=== PATIENT | female | born 1940 | race Caucasian/White ===

== ENCOUNTER 2019-07-23 13:58 | Inpatient (IN) | payer OTHER, MEDICAID ==
[~2019-07-23] VITALS: Ht 154.9 cm; Wt 54.4 kg
[2019-07-23 14:00] VITALS: BP_SYST 89
[2019-07-23] MEDS ORDERED: NACL 0.9% 1,000 ML IV ONE (14:30)
[2019-07-23] MEDS ORDERED: NOREPINEPHRINE BITARTRATE 4 MG in NS 246 ML IV ONE (14:30)
[2019-07-23 14:53] LABS: BASOPHILS # (AUTO) 0.1 K/uL (0.0-0.2); BASOPHILS % (AUTO) 0.3 % (0.0-2.0); EOSINOPHILS # (AUTO) 0.2 K/uL (0.0-0.4); EOSINOPHILS % (AUTO) 0.9 % (0.0-4.0); HEMATOCRIT 35.6 % (36-48); HEMOGLOBIN 11.6 g/dL (12.0-16.0); LYMPHOCYTES # (AUTO) 1.6 K/uL (1.0-5.5); LYMPHOCYTES % (AUTO) 9.4 % (20.5-51.5); MEAN CORPUSCULAR HEMOGLOBIN 32 pg (27-31); MEAN CORPUSCULAR HGB CONC 33 % (32-36); MEAN CORPUSCULAR VOLUME 98 fL (79.0-98.0); MONOCYTES # (AUTO) 1.2 K/uL (0.0-1.0); MONOCYTES % (AUTO) 7.1 % (1.7-9.3); NEUTROPHILS # (AUTO) 14.2 K/uL (1.8-7.7); NEUTROPHILS % (AUTO) 82.3 % (40.0-70.0); PLATELET COUNT (AUTO) 282 K/uL (130-430); RED BLOOD CELL COUNT(AUTO) 3.62 MIL/uL (4.2-6.2); WHITE BLOOD COUNT (AUTO) 17.3 K/uL (4.8-10.8)
[2019-07-23 15:26] LABS: INR 1.1 (0.8-1.2); PROTHROMBIN TIME 10.9 SECS (9.5-12.5)
[2019-07-23] MEDS ORDERED: VANCOMYCIN HCL 1,000 MG in NS 250 ML IV ONE (15:30)
[2019-07-23] MEDS ORDERED: cefTRIAXone 1 GM IVPB PREMIX 50 ML IV ONE (15:30)
[2019-07-23] MEDS ORDERED: NOREPINEPHRINE 4 MG/4 ML VIAL IV ONE ×2 (15:30→21:51)
[2019-07-23 15:33] LABS: ANION GAP 13 (5-15); CALCIUM 8.9 mg/dL (8.4-11.0); CREATININE 5.26 mg/dL (0.55-1.30); GLUCOSE 125 mg/dL (70-99); POTASSIUM 5.3 mmol/L (3.5-5.1); SODIUM SERUM 154 mmol/L (136-145)
[2019-07-23 15:37] LABS: ALANINE AMINOTRANSFERASE 117 U/L (12-78); ALBUMIN 2.6 g/dL (3.4-4.8); ASPARTATE AMINOTRANSFERASE 94 U/L (10-37); FREE T4 (FREE THYROXINE) 1.4 ng/dl (0.8-1.5); THYROID STIMULATING HORMONE 3.33 uIu/mL (0.36-3.74); TOTAL BILIRUBIN 0.5 mg/dL (0.0-1.0)
[2019-07-23] MEDS ORDERED: VANCOMYCIN HCL 1000 MG/VIAL IV ONE (15:42)
[2019-07-23 15:58] LABS: CHLORIDE 121 mmol/L (98-107)
[2019-07-23 15:59] LABS: UREA NITROGEN, BLOOD 165 mg/dL (8-21)
[2019-07-23 16:16] LABS: BILIRUBIN,URINE NEGATIVE (NEGATIVE); BLOOD, URINE 2+ (NEGATIVE); COLOR,URINE YELLOW (YELLOW); GLUCOSE,URINE NEGATIVE (NEGATIVE); KETONES,URINE NEGATIVE (NEGATIVE); LEUKOCYTE ESTERASE ,URINE NEGATIVE (NEGATIVE); NITRITE, URINE NEGATIVE (NEGATIVE); PH,URINE 5.5 (5.0-8.0); PROTEIN URINE TRACE (NEGATIVE); UROBILINOGEN,URINE 0.2 (0.2-1.0)
[2019-07-23 16:25] LABS: CLARITY/URINE HAZY (CLEAR)
[2019-07-23 16:38] LABS: BACTERIA,URINE FEW /HPF (None Seen); COARSE GRANULAR CASTS,URINE 0-10 /LPF (None Seen); MUCUS,URINE 1+ /LPF (None Seen); URIC ACID CRYSTALS,URINE 0-10 /HPF (None Seen); URINE AMORPHOUS URATE 2+ /HPF (None Seen)
[2019-07-23] MEDS ORDERED: DEXTROSE 50% JECT 50 ML DISP.SYRIN IVP PRN (22:15)
[2019-07-23] MEDS ORDERED: INSULIN REGULAR, HUMAN 100 UNITS/ML, 10 ML VIAL (humuLIN R) SUBCUT PRN (22:15)
[2019-07-23] MEDS ORDERED: IPRATROPIUM/ALBUTEROL SULFATE 3 ML AMPUL.NEB (DUONEB) INH PRN (23:45)
[2019-07-23] MEDS ORDERED: ACETAMINOPHEN 650 MG SUPP.RECT RC PRN (23:45)
[2019-07-23] MEDS ORDERED: ONDANSETRON HCL 4 MG/2 ML VIAL IVP PRN (23:45)
[2019-07-23] MEDS ORDERED: D5W 1,000 ML IV PRN (23:57)
[2019-07-24] VITALS (20 sets, daily range): BP systolic 94–137
[2019-07-24] MEDS ORDERED: GLUCOSE 15 GM GEL (in 37.5 GM TUBE) PO PRN
[2019-07-24] MEDS ORDERED: DEXTROSE 50% JECT 50 ML DISP.SYRIN IVP PRN
[2019-07-24] MEDS ORDERED: PIPERACILLIN/TAZO 2.25G/DEX-IS 50 ML IV SCH (01:00)
[2019-07-24] MEDS ORDERED: PIPERACILLIN/TAZOBACTAM 2.25 GM VIAL IV ONE (01:01)
[2019-07-24] MEDS: D5/0.45 NS 1,000 ML IV SCH ×2 (01:38→08:32)
[2019-07-24] MEDS ORDERED: MOM PO (03:34)
[2019-07-24] MEDS ORDERED: MEGE400O2 PO (03:34)
[2019-07-24] MEDS ORDERED: NOR10 PO (03:35)
[2019-07-24] MEDS ORDERED: SERT25TA PO (03:35)
[2019-07-24] MEDS ORDERED: MEMA10TA PO (03:35)
[2019-07-24] MEDS ORDERED: SER25 PO (03:35)
[2019-07-24] MEDS ORDERED: DOCU-144 PO (03:35)
[2019-07-24] MEDS ORDERED: ANT30 PO (03:35)
[2019-07-24] MEDS ORDERED: LISI10TA5 PO (03:35)
[2019-07-24] MEDS ORDERED: CLON0.5T12 PO (03:35)
[2019-07-24] MEDS ORDERED: HYDROCORTISONE SOD SUCC 100 MG/2 ML VIAL IVP SCH (06:00)
[2019-07-24] MEDS ORDERED: methylPREDNISolone SOD SUCC/PF 62.5 MG/ML VIAL ONE (07:58)
[2019-07-24] MEDS ORDERED: HYDROCORTISONE SOD SUCC 100 MG/2 ML VIAL ONE (08:00)
[2019-07-24] MEDS: INSULIN LISPRO SLIDING SCALE 100 UNITS/ML VIAL (humaLOG) SUBCUT PRN ×3 (08:26→21:26)
[2019-07-24] MEDS ORDERED: INSULIN Lispro 100 UNITS/ML VIAL (humaLOG) ONE (08:35)
[2019-07-24 10:15] LABS: BASOPHILS # (AUTO) 0.1 K/uL (0.0-0.2); BASOPHILS % (AUTO) 0.5 % (0.0-2.0); EOSINOPHILS # (AUTO) 0.4 K/uL (0.0-0.4); EOSINOPHILS % (AUTO) 2.3 % (0.0-4.0); HEMATOCRIT 37.8 % (36-48); HEMOGLOBIN 12.2 g/dL (12.0-16.0); LYMPHOCYTES # (AUTO) 0.8 K/uL (1.0-5.5); LYMPHOCYTES % (AUTO) 4.9 % (20.5-51.5); MEAN CORPUSCULAR HEMOGLOBIN 32 pg (27-31); MEAN CORPUSCULAR HGB CONC 32 % (32-36); MEAN CORPUSCULAR VOLUME 99 fL (79.0-98.0); MONOCYTES # (AUTO) 0.5 K/uL (0.0-1.0); MONOCYTES % (AUTO) 3.3 % (1.7-9.3); NEUTROPHILS # (AUTO) 14.4 K/uL (1.8-7.7); PLATELET COUNT (AUTO) 279 K/uL (130-430); RED BLOOD CELL COUNT(AUTO) 3.84 MIL/uL (4.2-6.2); RED CELL DISTRIBUTION WIDTH 14.2 % (9.0-15.0); WHITE BLOOD COUNT (AUTO) 16.2 K/uL (4.8-10.8)
[2019-07-24 10:33] LABS: ALANINE AMINOTRANSFERASE 121 U/L (12-78); ALBUMIN 2.5 g/dL (3.4-4.8); ANION GAP 9 (5-15); ASPARTATE AMINOTRANSFERASE 65 U/L (10-37); CALCIUM 8.3 mg/dL (8.4-11.0); CREATININE 2.89 mg/dL (0.55-1.30); GLUCOSE 197 mg/dL (70-99); PHOSPHORUS 3.8 mg/dL (2.7-4.5); POTASSIUM 4.2 mmol/L (3.5-5.1); SODIUM SERUM 147 mmol/L (136-145); TOTAL BILIRUBIN 0.5 mg/dL (0.0-1.0); VANCOMYCIN,RANDOM 10.1 ug/mL
[2019-07-24 10:36] LABS: CHLORIDE 120 mmol/L (98-107)
[2019-07-24 10:37] LABS: UREA NITROGEN, BLOOD 122 mg/dL (8-21)
[2019-07-24] MEDS: cefTRIAXone 1 GM in D5W 50 ML IV SCH (13:14)
[2019-07-24] MEDS: NOREPINEPHRINE BITARTRATE 4 MG in D5W 250 ML IV PRN (13:29)
[2019-07-24] MEDS: VANCOMYCIN HCL 750 MG in NS 250 ML IV SCH (14:37)
[2019-07-24] MEDS: HYDROCORTISONE SOD SUCC 100 MG/2 ML VIAL IVP SCH ×2 (14:37→21:07)
[2019-07-24 15:53] LABS: BASOPHILS % (AUTO) 0.3 % (0.0-2.0); EOSINOPHILS % (AUTO) 0.2 % (0.0-4.0); HEMATOCRIT 37.6 % (36-48); HEMOGLOBIN 12.1 g/dL (12.0-16.0); LYMPHOCYTES # (AUTO) 0.6 K/uL (1.0-5.5); LYMPHOCYTES % (AUTO) 4.3 % (20.5-51.5); MEAN CORPUSCULAR HEMOGLOBIN 32 pg (27-31); MEAN CORPUSCULAR HGB CONC 32 % (32-36); MEAN CORPUSCULAR VOLUME 98 fL (79.0-98.0); MONOCYTES # (AUTO) 0.3 K/uL (0.0-1.0); MONOCYTES % (AUTO) 2.4 % (1.7-9.3); NEUTROPHILS # (AUTO) 13.2 K/uL (1.8-7.7); NEUTROPHILS % (AUTO) 92.8 % (40.0-70.0); PLATELET COUNT (AUTO) 272 K/uL (130-430); RED BLOOD CELL COUNT(AUTO) 3.84 MIL/uL (4.2-6.2); WHITE BLOOD COUNT (AUTO) 14.2 K/uL (4.8-10.8)
[2019-07-24 16:07] LABS: ANION GAP 11 (5-15); CALCIUM 8.3 mg/dL (8.4-11.0); CREATININE 2.33 mg/dL (0.55-1.30); GLUCOSE 177 mg/dL (70-99); POTASSIUM 4.2 mmol/L (3.5-5.1); SODIUM SERUM 152 mmol/L (136-145)
[2019-07-24 16:10] LABS: CHLORIDE 122 mmol/L (98-107)
[2019-07-24 16:11] LABS: UREA NITROGEN, BLOOD 108 mg/dL (8-21)
[2019-07-24 16:13] LABS: ALANINE AMINOTRANSFERASE 110 U/L (12-78); ALBUMIN 2.4 g/dL (3.4-4.8); ASPARTATE AMINOTRANSFERASE 53 U/L (10-37); TOTAL BILIRUBIN 0.4 mg/dL (0.0-1.0)
[2019-07-24] MEDS: D5W 1,000 ML IV SCH (17:03)
[2019-07-24] MEDS: KCL 10 mEq in D5/0.45NS 1000mL 1,000 ML IV SCH (18:20)
[2019-07-25] VITALS (20 sets, daily range): BP systolic 88–153
[2019-07-25] MEDS: NOREPINEPHRINE BITARTRATE 4 MG in D5W 250 ML IV PRN (01:44)
[2019-07-25] MEDS: HYDROCORTISONE SOD SUCC 100 MG/2 ML VIAL IVP SCH (05:04)
[2019-07-25] MEDS: KCL 10 mEq in D5/0.45NS 1000mL 1,000 ML IV SCH ×3 (05:04→22:38)
[2019-07-25] MEDS: INSULIN LISPRO SLIDING SCALE 100 UNITS/ML VIAL (humaLOG) SUBCUT PRN ×2 (06:12→11:47)
[2019-07-25 07:03] LABS: BASOPHILS % (AUTO) 0.3 % (0.0-2.0); HEMATOCRIT 33.5 % (36-48); LYMPHOCYTES # (AUTO) 1.3 K/uL (1.0-5.5); LYMPHOCYTES % (AUTO) 9.1 % (20.5-51.5); MEAN CORPUSCULAR HEMOGLOBIN 32 pg (27-31); MEAN CORPUSCULAR HGB CONC 33 % (32-36); MEAN CORPUSCULAR VOLUME 98 fL (79.0-98.0); MONOCYTES # (AUTO) 0.9 K/uL (0.0-1.0); MONOCYTES % (AUTO) 6.3 % (1.7-9.3); NEUTROPHILS # (AUTO) 12.2 K/uL (1.8-7.7); NEUTROPHILS % (AUTO) 84.3 % (40.0-70.0); PLATELET COUNT (AUTO) 238 K/uL (130-430); RED BLOOD CELL COUNT(AUTO) 3.43 MIL/uL (4.2-6.2); RED CELL DISTRIBUTION WIDTH 13.9 % (9.0-15.0); WHITE BLOOD COUNT (AUTO) 14.4 K/uL (4.8-10.8)
[2019-07-25 07:31] LABS: ALANINE AMINOTRANSFERASE 104 U/L (12-78); ALBUMIN 2.3 g/dL (3.4-4.8); ANION GAP 9 (5-15); ASPARTATE AMINOTRANSFERASE 44 U/L (10-37); CALCIUM 8.2 mg/dL (8.4-11.0); CHLORIDE 119 mmol/L (98-107); CREATININE 1.64 mg/dL (0.55-1.30); GLUCOSE 191 mg/dL (70-99); PHOSPHORUS 2.6 mg/dL (2.7-4.5); POTASSIUM 3.9 mmol/L (3.5-5.1); SODIUM SERUM 147 mmol/L (136-145); TOTAL BILIRUBIN 0.3 mg/dL (0.0-1.0); UREA NITROGEN, BLOOD 78 mg/dL (8-21)
[2019-07-25] MEDS: cefTRIAXone 1 GM in D5W 50 ML IV SCH (11:43)
[2019-07-25] MEDS: VANCOMYCIN HCL 750 MG in NS 250 ML IV SCH (11:45)
[2019-07-25] MEDS: D5W 1,000 ML IV SCH (16:59)
[2019-07-25] MEDS ORDERED: HYDROCORTISONE SOD SUCC 100 MG/2 ML VIAL IVP SCH (21:00)
[2019-07-26] VITALS (7 sets, daily range): BP systolic 107–134
[2019-07-26 06:09] LABS: BASOPHILS % (AUTO) 0.2 % (0.0-2.0); EOSINOPHILS # (AUTO) 0.3 K/uL (0.0-0.4); EOSINOPHILS % (AUTO) 2.9 % (0.0-4.0); HEMATOCRIT 31.2 % (36-48); HEMOGLOBIN 10.4 g/dL (12.0-16.0); LYMPHOCYTES % (AUTO) 24.6 % (20.5-51.5); MEAN CORPUSCULAR HEMOGLOBIN 33 pg (27-31); MEAN CORPUSCULAR HGB CONC 33 % (32-36); MEAN CORPUSCULAR VOLUME 98 fL (79.0-98.0); MONOCYTES # (AUTO) 0.8 K/uL (0.0-1.0); MONOCYTES % (AUTO) 6.7 % (1.7-9.3); NEUTROPHILS # (AUTO) 7.9 K/uL (1.8-7.7); NEUTROPHILS % (AUTO) 65.6 % (40.0-70.0); PLATELET COUNT (AUTO) 165 K/uL (130-430); RED BLOOD CELL COUNT(AUTO) 3.17 MIL/uL (4.2-6.2); RED CELL DISTRIBUTION WIDTH 13.7 % (9.0-15.0); WHITE BLOOD COUNT (AUTO) 12.1 K/uL (4.8-10.8)
[2019-07-26] MEDS ORDERED: DILTIAZEM HCL 25 MG/5 ML VIAL IVP PRN (06:15)
[2019-07-26 06:24] LABS: ANION GAP 10 (5-15); CALCIUM 7.8 mg/dL (8.4-11.0); CREATININE 1.18 mg/dL (0.55-1.30); GLUCOSE 124 mg/dL (70-99); POTASSIUM 3.8 mmol/L (3.5-5.1); SODIUM SERUM 151 mmol/L (136-145); UREA NITROGEN, BLOOD 46 mg/dL (8-21)
[2019-07-26] MEDS ORDERED: DILTIAZEM HCL 125 MG/25 ML VIAL IV ONE (06:24)
[2019-07-26 06:38] LABS: CHLORIDE 121 mmol/L (98-107)
[2019-07-26] MEDS: KCL 10 mEq in D5/0.45NS 1000mL 1,000 ML IV SCH ×2 (10:09→18:00)
[2019-07-26] MEDS: cefTRIAXone 1 GM in D5W 50 ML IV SCH (12:51)
[2019-07-26] MEDS: VANCOMYCIN HCL 750 MG in NS 250 ML IV SCH (12:52)
[2019-07-26] MEDS: D5W 1,000 ML IV SCH (16:19)
[2019-07-27] VITALS: BP_SYST 136
[2019-07-27] MEDS: KCL 10 mEq in D5/0.45NS 1000mL 1,000 ML IV SCH ×3 (05:31→23:43)
[2019-07-27 06:33] LABS: BASOPHILS % (AUTO) 0.3 % (0.0-2.0); EOSINOPHILS # (AUTO) 0.5 K/uL (0.0-0.4); EOSINOPHILS % (AUTO) 4.5 % (0.0-4.0); HEMOGLOBIN 10.2 g/dL (12.0-16.0); LYMPHOCYTES # (AUTO) 2.5 K/uL (1.0-5.5); LYMPHOCYTES % (AUTO) 21.3 % (20.5-51.5); MEAN CORPUSCULAR HEMOGLOBIN 32 pg (27-31); MEAN CORPUSCULAR HGB CONC 34 % (32-36); MEAN CORPUSCULAR VOLUME 95 fL (79.0-98.0); MONOCYTES # (AUTO) 0.8 K/uL (0.0-1.0); MONOCYTES % (AUTO) 6.9 % (1.7-9.3); NEUTROPHILS # (AUTO) 7.9 K/uL (1.8-7.7); PLATELET COUNT (AUTO) 151 K/uL (130-430); RED BLOOD CELL COUNT(AUTO) 3.14 MIL/uL (4.2-6.2); RED CELL DISTRIBUTION WIDTH 13.1 % (9.0-15.0); WHITE BLOOD COUNT (AUTO) 11.8 K/uL (4.8-10.8)
[2019-07-27 07:14] LABS: ALANINE AMINOTRANSFERASE 140 U/L (12-78); ALBUMIN 2.1 g/dL (3.4-4.8); ANION GAP 9 (5-15); ASPARTATE AMINOTRANSFERASE 64 U/L (10-37); CALCIUM 7.7 mg/dL (8.4-11.0); CHLORIDE 115 mmol/L (98-107); GLUCOSE 114 mg/dL (70-99); POTASSIUM 3.1 mmol/L (3.5-5.1); SODIUM SERUM 141 mmol/L (136-145); TOTAL BILIRUBIN 0.5 mg/dL (0.0-1.0); UREA NITROGEN, BLOOD 27 mg/dL (8-21)
[2019-07-27 07:55] VITALS: BP_SYST 137
[2019-07-27] MEDS: VANCOMYCIN HCL 1,250 MG in NS 250 ML IV SCH (09:54)
[2019-07-27 11:27] VITALS: BP_SYST 121
[2019-07-27] MEDS: cefTRIAXone 1 GM in D5W 50 ML IV SCH (12:05)
[2019-07-27] MEDS ORDERED: POTASSIUM CHLORIDE 20 MEQ TAB.PRT.SR PO ONE (13:30)
[2019-07-27 15:00] VITALS: BP_SYST 142
[2019-07-27 15:39] VITALS: BP_SYST 142
[2019-07-27] MEDS: D5W 1,000 ML IV SCH (18:35)
[2019-07-27 20:00] VITALS: BP_SYST 124
[2019-07-28 00:29] VITALS: BP_SYST 151
[2019-07-28 07:42] LABS: BASOPHILS # (AUTO) 0.1 K/uL (0.0-0.2); BASOPHILS % (AUTO) 0.5 % (0.0-2.0); EOSINOPHILS # (AUTO) 0.6 K/uL (0.0-0.4); EOSINOPHILS % (AUTO) 4.7 % (0.0-4.0); HEMATOCRIT 29.7 % (36-48); HEMOGLOBIN 10.2 g/dL (12.0-16.0); LYMPHOCYTES # (AUTO) 2.5 K/uL (1.0-5.5); LYMPHOCYTES % (AUTO) 19.8 % (20.5-51.5); MEAN CORPUSCULAR HEMOGLOBIN 33 pg (27-31); MEAN CORPUSCULAR HGB CONC 34 % (32-36); MEAN CORPUSCULAR VOLUME 95 fL (79.0-98.0); MONOCYTES # (AUTO) 0.8 K/uL (0.0-1.0); MONOCYTES % (AUTO) 6.7 % (1.7-9.3); NEUTROPHILS # (AUTO) 8.6 K/uL (1.8-7.7); NEUTROPHILS % (AUTO) 68.3 % (40.0-70.0); PLATELET COUNT (AUTO) 164 K/uL (130-430); RED BLOOD CELL COUNT(AUTO) 3.13 MIL/uL (4.2-6.2); RED CELL DISTRIBUTION WIDTH 12.8 % (9.0-15.0); WHITE BLOOD COUNT (AUTO) 12.6 K/uL (4.8-10.8)
[2019-07-28 07:49] LABS: ANION GAP 9 (5-15); CALCIUM 7.6 mg/dL (8.4-11.0); CHLORIDE 113 mmol/L (98-107); CREATININE 0.82 mg/dL (0.55-1.30); GLUCOSE 110 mg/dL (70-99); POTASSIUM 3.6 mmol/L (3.5-5.1); SODIUM SERUM 141 mmol/L (136-145); UREA NITROGEN, BLOOD 14 mg/dL (8-21)
[2019-07-28 07:55] VITALS: BP_SYST 134
[2019-07-28] MEDS: VANCOMYCIN HCL 1,250 MG in NS 250 ML IV SCH (09:02)
[2019-07-28 11:25] VITALS: BP_SYST 133
[2019-07-28] MEDS: cefTRIAXone 1 GM in D5W 50 ML IV SCH (11:39)
[2019-07-28] MEDS: KCL 10 mEq in D5/0.45NS 1000mL 1,000 ML IV SCH ×2 (11:39→20:42)
[2019-07-28] MEDS ORDERED: DOCUSATE SODIUM 100 MG CAPSULE PO ONE (14:00)
[2019-07-28] MEDS ORDERED: amLODIPine BESYLATE 10 MG TABLET PO ONE (14:00)
[2019-07-28] MEDS ORDERED: SERTRALINE HCL 50 MG TABLET PO ONE (14:00)
[2019-07-28 16:00] VITALS: BP_SYST 146
[2019-07-28 20:00] VITALS: BP_SYST 140
[2019-07-28] MEDS: DOCUSATE SODIUM 100 MG CAPSULE PO SCH (20:42)
[2019-07-28] MEDS: QUEtiapine FUMARATE 25 MG TABLET PO SCH (20:42)
[2019-07-28] MEDS: MEMANTINE HCL 5 MG TABLET PO SCH (20:43)
[2019-07-29] VITALS: BP_SYST 140; BP_SYST 98
[2019-07-29] MEDS: KCL 10 mEq in D5/0.45NS 1000mL 1,000 ML IV SCH ×2 (07:11→17:50)
[2019-07-29 07:29] LABS: BASOPHILS % (AUTO) 0.3 % (0.0-2.0); EOSINOPHILS # (AUTO) 0.5 K/uL (0.0-0.4); EOSINOPHILS % (AUTO) 3.9 % (0.0-4.0); HEMATOCRIT 27.1 % (36-48); HEMOGLOBIN 9.1 g/dL (12.0-16.0); LYMPHOCYTES % (AUTO) 15.7 % (20.5-51.5); MEAN CORPUSCULAR HEMOGLOBIN 32 pg (27-31); MEAN CORPUSCULAR HGB CONC 34 % (32-36); MEAN CORPUSCULAR VOLUME 96 fL (79.0-98.0); NEUTROPHILS # (AUTO) 9.4 K/uL (1.8-7.7); NEUTROPHILS % (AUTO) 72.1 % (40.0-70.0); PLATELET COUNT (AUTO) 134 K/uL (130-430); RED BLOOD CELL COUNT(AUTO) 2.83 MIL/uL (4.2-6.2); RED CELL DISTRIBUTION WIDTH 13.3 % (9.0-15.0)
[2019-07-29 08:04] LABS: ANION GAP 8 (5-15); CALCIUM 7.7 mg/dL (8.4-11.0); CHLORIDE 111 mmol/L (98-107); CREATININE 0.78 mg/dL (0.55-1.30); GLUCOSE 99 mg/dL (70-99); POTASSIUM 3.5 mmol/L (3.5-5.1); SODIUM SERUM 138 mmol/L (136-145); UREA NITROGEN, BLOOD 10 mg/dL (8-21)
[2019-07-29 08:15] VITALS: BP_SYST 141
[2019-07-29] MEDS: VANCOMYCIN HCL 1,250 MG in NS 250 ML IV SCH (08:39)
[2019-07-29] MEDS: amLODIPine BESYLATE 10 MG TABLET PO SCH (08:40)
[2019-07-29] MEDS: SERTRALINE HCL 50 MG TABLET PO SCH (08:41)
[2019-07-29] MEDS: DOCUSATE SODIUM 100 MG CAPSULE PO SCH ×2 (08:41→20:38)
[2019-07-29 11:32] VITALS: BP_SYST 136
[2019-07-29] MEDS: cefTRIAXone 1 GM in D5W 50 ML IV SCH (12:35)
[2019-07-29 15:47] VITALS: BP_SYST 111
[2019-07-29] MEDS: QUEtiapine FUMARATE 25 MG TABLET PO SCH (20:39)
[2019-07-29] MEDS: MEMANTINE HCL 5 MG TABLET PO SCH (20:39)
[2019-07-30 00:51] VITALS: BP_SYST 136
[2019-07-30] MEDS: KCL 10 mEq in D5/0.45NS 1000mL 1,000 ML IV SCH ×3 (01:08→21:39)
[2019-07-30] MEDS: DOCUSATE SODIUM 100 MG CAPSULE PO SCH ×2 (08:57→21:33)
[2019-07-30] MEDS: amLODIPine BESYLATE 10 MG TABLET PO SCH (09:00)
[2019-07-30] MEDS: VANCOMYCIN HCL 1,250 MG in NS 250 ML IV SCH (09:00)
[2019-07-30] MEDS: SERTRALINE HCL 50 MG TABLET PO SCH (09:00)
[2019-07-30 11:25] VITALS: BP_SYST 131
[2019-07-30] MEDS: cefTRIAXone 1 GM in D5W 50 ML IV SCH (14:18)
[2019-07-30 15:41] VITALS: BP_SYST 150
[2019-07-30 17:44] VITALS: BP_SYST 150
[2019-07-30 19:00] VITALS: BP_SYST 129
[2019-07-30 20:00] VITALS: BP_SYST 129
[2019-07-30] MEDS: MEMANTINE HCL 5 MG TABLET PO SCH (21:33)
[2019-07-30] MEDS: QUEtiapine FUMARATE 25 MG TABLET PO SCH (21:34)
[2019-07-31] VITALS: BP_SYST 125
[2019-07-31] MEDS: KCL 10 mEq in D5/0.45NS 1000mL 1,000 ML IV SCH ×2 (05:59→16:59)
[2019-07-31 08:00] VITALS: BP_SYST 133
[2019-07-31] MEDS: DOCUSATE SODIUM 100 MG CAPSULE PO SCH ×2 (10:20→22:27)
[2019-07-31] MEDS: VANCOMYCIN HCL 1,250 MG in NS 250 ML IV SCH (10:20)
[2019-07-31] MEDS: amLODIPine BESYLATE 10 MG TABLET PO SCH (10:21)
[2019-07-31] MEDS: SERTRALINE HCL 50 MG TABLET PO SCH (10:21)
[2019-07-31 11:15] VITALS: BP_SYST 143
[2019-07-31 15:03] VITALS: BP_SYST 126
[2019-07-31 19:00] VITALS: BP_SYST 135
[2019-07-31 20:00] VITALS: BP_SYST 135
[2019-07-31] MEDS: QUEtiapine FUMARATE 25 MG TABLET PO SCH (22:27)
[2019-07-31] MEDS: MEGESTROL ACETATE 400 MG/10 ML UDC PO SCH (22:27)
[2019-07-31] MEDS: MEMANTINE HCL 5 MG TABLET PO SCH (22:27)
[2019-08-01 00:48] VITALS: BP_SYST 128
[2019-08-01] MEDS: KCL 10 mEq in D5/0.45NS 1000mL 1,000 ML IV SCH ×2 (04:34→14:48)
[2019-08-01 06:26] LABS: BASOPHILS % (AUTO) 0.2 % (0.0-2.0); EOSINOPHILS # (AUTO) 0.3 K/uL (0.0-0.4); EOSINOPHILS % (AUTO) 2.6 % (0.0-4.0); HEMOGLOBIN 9.4 g/dL (12.0-16.0); LYMPHOCYTES # (AUTO) 1.3 K/uL (1.0-5.5); LYMPHOCYTES % (AUTO) 10.2 % (20.5-51.5); MEAN CORPUSCULAR HEMOGLOBIN 32 pg (27-31); MEAN CORPUSCULAR HGB CONC 34 % (32-36); MEAN CORPUSCULAR VOLUME 95 fL (79.0-98.0); MONOCYTES % (AUTO) 7.5 % (1.7-9.3); NEUTROPHILS # (AUTO) 10.5 K/uL (1.8-7.7); NEUTROPHILS % (AUTO) 79.5 % (40.0-70.0); PLATELET COUNT (AUTO) 213 K/uL (130-430); RED BLOOD CELL COUNT(AUTO) 2.95 MIL/uL (4.2-6.2); RED CELL DISTRIBUTION WIDTH 13.3 % (9.0-15.0); WHITE BLOOD COUNT (AUTO) 13.2 K/uL (4.8-10.8)
[2019-08-01 06:54] LABS: ALANINE AMINOTRANSFERASE 72 U/L (12-78); ALBUMIN 1.9 g/dL (3.4-4.8); ANION GAP 10 (5-15); ASPARTATE AMINOTRANSFERASE 31 U/L (10-37); CALCIUM 8.2 mg/dL (8.4-11.0); CHLORIDE 108 mmol/L (98-107); CREATININE 0.69 mg/dL (0.55-1.30); GLUCOSE 102 mg/dL (70-99); SODIUM SERUM 140 mmol/L (136-145); TOTAL BILIRUBIN 0.4 mg/dL (0.0-1.0); UREA NITROGEN, BLOOD 5 mg/dL (8-21)
[2019-08-01 08:00] VITALS: BP_SYST 142
[2019-08-01] MEDS: VANCOMYCIN HCL 1,250 MG in NS 250 ML IV SCH (09:45)
[2019-08-01] MEDS: DOCUSATE SODIUM 100 MG CAPSULE PO SCH ×2 (09:46→21:03)
[2019-08-01] MEDS: MEGESTROL ACETATE 400 MG/10 ML UDC PO SCH ×2 (09:46→21:03)
[2019-08-01] MEDS: SERTRALINE HCL 50 MG TABLET PO SCH (09:46)
[2019-08-01] MEDS: amLODIPine BESYLATE 10 MG TABLET PO SCH (09:47)
[2019-08-01 12:00] VITALS: BP_SYST 135
[2019-08-01] MEDS ORDERED: POTASSIUM CHLORIDE 40 MEQ in NS 250 ML IV ONE (12:30)
[2019-08-01 17:21] VITALS: BP_SYST 115
[2019-08-01 20:00] VITALS: BP_SYST 107
[2019-08-01] MEDS: QUEtiapine FUMARATE 25 MG TABLET PO SCH (21:03)
[2019-08-01] MEDS: MEMANTINE HCL 5 MG TABLET PO SCH (21:04)
[2019-08-02 00:12] VITALS: BP_SYST 104
[2019-08-02] MEDS: KCL 10 mEq in D5/0.45NS 1000mL 1,000 ML IV SCH (01:28)
[2019-08-02 07:50] LABS: BASOPHILS % (AUTO) 0.3 % (0.0-2.0); EOSINOPHILS # (AUTO) 0.3 K/uL (0.0-0.4); EOSINOPHILS % (AUTO) 2.7 % (0.0-4.0); HEMATOCRIT 24.9 % (36-48); HEMOGLOBIN 8.4 g/dL (12.0-16.0); LYMPHOCYTES # (AUTO) 1.9 K/uL (1.0-5.5); LYMPHOCYTES % (AUTO) 17.6 % (20.5-51.5); MEAN CORPUSCULAR HEMOGLOBIN 32 pg (27-31); MEAN CORPUSCULAR HGB CONC 34 % (32-36); MEAN CORPUSCULAR VOLUME 95 fL (79.0-98.0); MONOCYTES # (AUTO) 0.9 K/uL (0.0-1.0); MONOCYTES % (AUTO) 8.1 % (1.7-9.3); NEUTROPHILS # (AUTO) 7.5 K/uL (1.8-7.7); NEUTROPHILS % (AUTO) 71.3 % (40.0-70.0); PLATELET COUNT (AUTO) 203 K/uL (130-430); RED BLOOD CELL COUNT(AUTO) 2.61 MIL/uL (4.2-6.2); RED CELL DISTRIBUTION WIDTH 13.6 % (9.0-15.0); WHITE BLOOD COUNT (AUTO) 10.5 K/uL (4.8-10.8)
[2019-08-02 08:00] VITALS: BP_SYST 140
[2019-08-02 08:33] LABS: ANION GAP 10 (5-15); CALCIUM 8.3 mg/dL (8.4-11.0); CHLORIDE 108 mmol/L (98-107); CREATININE 0.74 mg/dL (0.55-1.30); GLUCOSE 126 mg/dL (70-99); POTASSIUM 3.6 mmol/L (3.5-5.1); SODIUM SERUM 138 mmol/L (136-145); UREA NITROGEN, BLOOD 16 mg/dL (8-21)
[2019-08-02] MEDS: MEGESTROL ACETATE 400 MG/10 ML UDC PO SCH ×2 (09:39→20:28)
[2019-08-02] MEDS: SERTRALINE HCL 50 MG TABLET PO SCH (09:39)
[2019-08-02] MEDS: DOCUSATE SODIUM 100 MG CAPSULE PO SCH ×2 (09:39→20:28)
[2019-08-02] MEDS: amLODIPine BESYLATE 10 MG TABLET PO SCH (09:40)
[2019-08-02] MEDS: VANCOMYCIN HCL 1,250 MG in NS 250 ML IV SCH (09:43)
[2019-08-02 10:48] VITALS: BP_SYST 140
[2019-08-02 11:13] VITALS: BP_SYST 119
[2019-08-02] MEDS: D5/0.45 NS 1,000 ML IV SCH (14:23)
[2019-08-02 16:13] VITALS: BP_SYST 119
[2019-08-02 20:00] VITALS: BP_SYST 143
[2019-08-02] MEDS: QUEtiapine FUMARATE 25 MG TABLET PO SCH (20:28)
[2019-08-02] MEDS: MEMANTINE HCL 5 MG TABLET PO SCH (20:28)
[2019-08-03 00:44] VITALS: BP_SYST 135
[2019-08-03 07:00] VITALS: BP_SYST 131
[2019-08-03 08:29] LABS: BASOPHILS % (AUTO) 0.3 % (0.0-2.0); EOSINOPHILS # (AUTO) 0.4 K/uL (0.0-0.4); HEMATOCRIT 26.5 % (36-48); HEMOGLOBIN 8.9 g/dL (12.0-16.0); LYMPHOCYTES # (AUTO) 2.1 K/uL (1.0-5.5); LYMPHOCYTES % (AUTO) 20.6 % (20.5-51.5); MEAN CORPUSCULAR HEMOGLOBIN 32 pg (27-31); MEAN CORPUSCULAR HGB CONC 34 % (32-36); MEAN CORPUSCULAR VOLUME 96 fL (79.0-98.0); MONOCYTES # (AUTO) 0.9 K/uL (0.0-1.0); MONOCYTES % (AUTO) 8.8 % (1.7-9.3); NEUTROPHILS # (AUTO) 6.8 K/uL (1.8-7.7); NEUTROPHILS % (AUTO) 66.3 % (40.0-70.0); PLATELET COUNT (AUTO) 257 K/uL (130-430); RED BLOOD CELL COUNT(AUTO) 2.77 MIL/uL (4.2-6.2); RED CELL DISTRIBUTION WIDTH 13.9 % (9.0-15.0); WHITE BLOOD COUNT (AUTO) 10.2 K/uL (4.8-10.8)
[2019-08-03 08:38] LABS: ANION GAP 9 (5-15); CALCIUM 8.8 mg/dL (8.4-11.0); CHLORIDE 107 mmol/L (98-107); CREATININE 0.73 mg/dL (0.55-1.30); GLUCOSE 99 mg/dL (70-99); POTASSIUM 3.6 mmol/L (3.5-5.1); SODIUM SERUM 141 mmol/L (136-145); UREA NITROGEN, BLOOD 9 mg/dL (8-21)
[2019-08-03] MEDS: D5/0.45 NS 1,000 ML IV SCH (08:45)
[2019-08-03] MEDS: DOCUSATE SODIUM 100 MG CAPSULE PO SCH ×2 (09:18→20:31)
[2019-08-03] MEDS: MEGESTROL ACETATE 400 MG/10 ML UDC PO SCH ×2 (09:19→20:32)
[2019-08-03] MEDS: amLODIPine BESYLATE 10 MG TABLET PO SCH (09:19)
[2019-08-03] MEDS: SERTRALINE HCL 50 MG TABLET PO SCH (09:20)
[2019-08-03 11:18] VITALS: BP_SYST 108
[2019-08-03 15:44] VITALS: BP_SYST 113
[2019-08-03 16:00] VITALS: BP_SYST 113
[2019-08-03 20:00] VITALS: BP_SYST 121
[2019-08-03] MEDS: QUEtiapine FUMARATE 25 MG TABLET PO SCH (20:31)
[2019-08-03] MEDS: MEMANTINE HCL 5 MG TABLET PO SCH (20:32)
[2019-08-04 00:36] VITALS: BP_SYST 123
[2019-08-04] MEDS: D5/0.45 NS 1,000 ML IV SCH ×2 (05:52→17:08)
[2019-08-04 08:08] VITALS: BP_SYST 128
[2019-08-04] MEDS: MEGESTROL ACETATE 400 MG/10 ML UDC PO SCH ×2 (09:52→21:26)
[2019-08-04] MEDS: DOCUSATE SODIUM 100 MG CAPSULE PO SCH ×2 (09:52→21:26)
[2019-08-04] MEDS: amLODIPine BESYLATE 10 MG TABLET PO SCH (09:52)
[2019-08-04] MEDS: SERTRALINE HCL 50 MG TABLET PO SCH (09:57)
[2019-08-04 11:13] VITALS: BP_SYST 119
[2019-08-04 15:04] VITALS: BP_SYST 114
[2019-08-04] MEDS: MEMANTINE HCL 5 MG TABLET PO SCH (21:25)
[2019-08-04] MEDS: QUEtiapine FUMARATE 25 MG TABLET PO SCH (21:26)
[2019-08-05 00:45] VITALS: BP_SYST 115
[2019-08-05 07:55] VITALS: BP_SYST 107
[2019-08-05 08:26] LABS: BASOPHILS % (AUTO) 0.5 % (0.0-2.0); EOSINOPHILS # (AUTO) 0.3 K/uL (0.0-0.4); EOSINOPHILS % (AUTO) 3.9 % (0.0-4.0); HEMATOCRIT 24.9 % (36-48); HEMOGLOBIN 8.4 g/dL (12.0-16.0); LYMPHOCYTES % (AUTO) 25.1 % (20.5-51.5); MEAN CORPUSCULAR HEMOGLOBIN 32 pg (27-31); MEAN CORPUSCULAR HGB CONC 34 % (32-36); MEAN CORPUSCULAR VOLUME 95 fL (79.0-98.0); MONOCYTES # (AUTO) 0.6 K/uL (0.0-1.0); MONOCYTES % (AUTO) 7.7 % (1.7-9.3); NEUTROPHILS # (AUTO) 4.9 K/uL (1.8-7.7); NEUTROPHILS % (AUTO) 62.8 % (40.0-70.0); PLATELET COUNT (AUTO) 264 K/uL (130-430); RED BLOOD CELL COUNT(AUTO) 2.62 MIL/uL (4.2-6.2); RED CELL DISTRIBUTION WIDTH 13.7 % (9.0-15.0); WHITE BLOOD COUNT (AUTO) 7.9 K/uL (4.8-10.8)
[2019-08-05 08:31] LABS: ALANINE AMINOTRANSFERASE 46 U/L (12-78); ALBUMIN 1.9 g/dL (3.4-4.8); ANION GAP 8 (5-15); ASPARTATE AMINOTRANSFERASE 19 U/L (10-37); CALCIUM 8.2 mg/dL (8.4-11.0); CHLORIDE 105 mmol/L (98-107); CREATININE 0.71 mg/dL (0.55-1.30); GLUCOSE 94 mg/dL (70-99); SODIUM SERUM 140 mmol/L (136-145); TOTAL BILIRUBIN 0.3 mg/dL (0.0-1.0); UREA NITROGEN, BLOOD 7 mg/dL (8-21)
[2019-08-05 08:35] LABS: POTASSIUM 2.8 mmol/L (3.5-5.1)
[2019-08-05] MEDS: MEGESTROL ACETATE 400 MG/10 ML UDC PO SCH ×2 (09:09→20:54)
[2019-08-05] MEDS: DOCUSATE SODIUM 100 MG CAPSULE PO SCH ×2 (09:10→20:54)
[2019-08-05] MEDS: amLODIPine BESYLATE 10 MG TABLET PO SCH (09:10)
[2019-08-05] MEDS: SERTRALINE HCL 50 MG TABLET PO SCH (09:10)
[2019-08-05] MEDS ORDERED: POTASSIUM CHLORIDE 40 MEQ in NS 250 ML IV ONE (09:45)
[2019-08-05 10:40] VITALS: BP_SYST 107
[2019-08-05 12:12] VITALS: BP_SYST 100
[2019-08-05] MEDS: D5/0.45 NS 1,000 ML IV SCH (14:55)
[2019-08-05 18:15] VITALS: BP_SYST 106
[2019-08-05 20:00] VITALS: BP_SYST 107
[2019-08-05] MEDS: MEMANTINE HCL 5 MG TABLET PO SCH (20:54)
[2019-08-05] MEDS: QUEtiapine FUMARATE 25 MG TABLET PO SCH (20:54)
[2019-08-05] MEDS: INSULIN LISPRO SLIDING SCALE 100 UNITS/ML VIAL (humaLOG) SUBCUT PRN (20:59)
[2019-08-06 00:25] VITALS: BP_SYST 108
[2019-08-06 04:13] VITALS: BP_SYST 135
[2019-08-06] MEDS: INSULIN LISPRO SLIDING SCALE 100 UNITS/ML VIAL (humaLOG) SUBCUT PRN (05:57)
[2019-08-06 06:59] LABS: ANION GAP 10 (5-15); CALCIUM 8.9 mg/dL (8.4-11.0); CHLORIDE 105 mmol/L (98-107); CREATININE 0.75 mg/dL (0.55-1.30); GLUCOSE 101 mg/dL (70-99); POTASSIUM 3.9 mmol/L (3.5-5.1); SODIUM SERUM 140 mmol/L (136-145); UREA NITROGEN, BLOOD 30 mg/dL (8-21)
[2019-08-06 07:07] LABS: BASOPHILS # (AUTO) 0.1 K/uL (0.0-0.2); BASOPHILS % (AUTO) 0.5 % (0.0-2.0); EOSINOPHILS # (AUTO) 0.3 K/uL (0.0-0.4); EOSINOPHILS % (AUTO) 2.5 % (0.0-4.0); HEMATOCRIT 27.8 % (36-48); HEMOGLOBIN 9.2 g/dL (12.0-16.0); LYMPHOCYTES # (AUTO) 2.6 K/uL (1.0-5.5); LYMPHOCYTES % (AUTO) 19.8 % (20.5-51.5); MEAN CORPUSCULAR HEMOGLOBIN 32 pg (27-31); MEAN CORPUSCULAR HGB CONC 33 % (32-36); MEAN CORPUSCULAR VOLUME 96 fL (79.0-98.0); MONOCYTES # (AUTO) 0.8 K/uL (0.0-1.0); MONOCYTES % (AUTO) 6.5 % (1.7-9.3); NEUTROPHILS # (AUTO) 9.2 K/uL (1.8-7.7); NEUTROPHILS % (AUTO) 70.7 % (40.0-70.0); PLATELET COUNT (AUTO) 308 K/uL (130-430); RED CELL DISTRIBUTION WIDTH 14.1 % (9.0-15.0)
[2019-08-06 08:56] VITALS: BP_SYST 131
[2019-08-06] MEDS: MEGESTROL ACETATE 400 MG/10 ML UDC PO SCH (08:58)
[2019-08-06] MEDS: DOCUSATE SODIUM 100 MG CAPSULE PO SCH (08:59)
[2019-08-06] MEDS: SERTRALINE HCL 50 MG TABLET PO SCH (08:59)
[2019-08-06] MEDS: amLODIPine BESYLATE 10 MG TABLET PO SCH (08:59)
[2019-08-06 12:41] VITALS: BP_SYST 118
[2019-08-06 16:36] VITALS: BP_SYST 118
[2019-08-06 16:49] VITALS: BP_SYST 114
== END 2019-08-06 19:54 | DRG 871 ==
LOC: SED 13:58 → SIC 19:05 → STU 07-26 19:19
PROVIDERS: ADMIT Internal Medicine; ATTEND Internal Medicine
DX: A41.9 Sepsis, unspecified organism (principal); J96.00 Acute respiratory failure, unspecified whether with hypoxia or hypercapnia; R65.21 Severe sepsis with septic shock; N39.0 Urinary tract infection, site not specified; E87.0 Hyperosmolality and hypernatremia; I47.1 Supraventricular tachycardia; N17.9 Acute kidney failure, unspecified; I12.9 Hypertensive chronic kidney disease with stage 1 through stage 4 chronic kidney disease, or unspecified chronic kidney disease; N18.3 Chronic kidney disease, stage 3 (moderate); D64.9 Anemia, unspecified; E11.22 Type 2 diabetes mellitus with diabetic chronic kidney disease; E86.0 Dehydration; F02.80 Dementia in other diseases classified elsewhere, unspecified severity, without behavioral disturbance, psychotic disturbance, mood disturbance, and anxiety; F25.9 Schizoaffective disorder, unspecified; F32.9 Major depressive disorder, single episode, unspecified; G30.9 Alzheimer's disease, unspecified; M81.0 Age-related osteoporosis without current pathological fracture; R62.7 Adult failure to thrive; Z51.5 Encounter for palliative care; Z68.22 Body mass index [BMI] 22.0-22.9, adult; Z79.899 Other long term (current) drug therapy; Z88.5 Allergy status to narcotic agent
CPT/HCPCS: 36415; 71045; 76770; 80048; 80053; 80202-TC; 81000-TC; 82140-TC; 82272; 82962; 83605; 83735-TC; 83880; 84100-TC; 84439; 84443-TC; 84484; 85025; 85610-TC; 85730-TC; 87040-TC; 87081; 87086; 92610-GN; 93005; 93306; 94760; 96361; 96365; 96366; 96367; 96372; 96375; 99285; G0378; J0696; J1720; J1815; J2543; J2930; J3370; J3480; J3490; J7050; J7060

== ENCOUNTER 2019-09-03 22:50 | Inpatient (IN) | payer OTHER, MEDICAID ==
[~2019-09-03] VITALS: Ht 149.9 cm; Wt 49.0 kg
[2019-09-03 22:50] VITALS: BP_SYST 132
[~2019-09-03 22:50] MED LIST: ANT30 PO; CLON0.5T12 PO; DOCU-144 PO; LISI10TA5 PO; MEGE400O2 PO; MEMA10TA PO; MOM PO; NOR10 PO; SER25 PO; SERT25TA PO
--- NOTE | 2019-09-03 23:00 | NUR ---
Patient to ER bed 4 to gown for evaluation. Side rails up.
--- NOTE | 2019-09-03 23:10 | NUR ---
Dr. Blackmon bedside for pt eval
--- NOTE | 2019-09-03 23:15 | NUR ---
Pt BIBA from facility to ED needing med eval for recent weight loss. No other complaints and or injuries noted VSS no s/s of acute distress Resting on gurney rails up
[2019-09-03 23:29] LABS: BASOPHILS % (AUTO) 0.4 % (0.0-2.0); EOSINOPHILS # (AUTO) 0.5 K/uL (0.0-0.4); EOSINOPHILS % (AUTO) 4.1 % (0.0-4.0); HEMATOCRIT 27.9 % (36-48); HEMOGLOBIN 9.4 g/dL (12.0-16.0); LYMPHOCYTES # (AUTO) 2.4 K/uL (1.0-5.5); LYMPHOCYTES % (AUTO) 17.9 % (20.5-51.5); MEAN CORPUSCULAR HEMOGLOBIN 32 pg (27-31); MEAN CORPUSCULAR HGB CONC 34 % (32-36); MEAN CORPUSCULAR VOLUME 94 fL (79.0-98.0); MONOCYTES # (AUTO) 0.9 K/uL (0.0-1.0); MONOCYTES % (AUTO) 6.8 % (1.7-9.3); NEUTROPHILS # (AUTO) 9.4 K/uL (1.8-7.7); NEUTROPHILS % (AUTO) 70.8 % (40.0-70.0); PLATELET COUNT (AUTO) 217 K/uL (130-430); RED BLOOD CELL COUNT(AUTO) 2.95 MIL/uL (4.2-6.2); RED CELL DISTRIBUTION WIDTH 14.9 % (9.0-15.0); WHITE BLOOD COUNT (AUTO) 13.3 K/uL (4.8-10.8)
[2019-09-03 23:46] LABS: ANION GAP 11 (5-15); CALCIUM 8.6 mg/dL (8.4-11.0); CHLORIDE 103 mmol/L (98-107); CREATININE 0.66 mg/dL (0.55-1.30); GLUCOSE 96 mg/dL (70-99); POTASSIUM 3.3 mmol/L (3.5-5.1); SODIUM SERUM 135 mmol/L (136-145); UREA NITROGEN, BLOOD 16 mg/dL (8-21)
[2019-09-03 23:48] LABS: PROTHROMBIN TIME 10.2 SECS (9.5-12.5)
[2019-09-03 23:50] LABS: ALANINE AMINOTRANSFERASE 28 U/L (12-78); ALBUMIN 2.4 g/dL (3.4-4.8); AMYLASE 91 U/L (0-100); ASPARTATE AMINOTRANSFERASE 17 U/L (10-37); CHOLESTEROL 149 mg/dL (<200); HDL CHOLESTEROL 32 mg/dL (>55); LDL CHOLESTEROL 102 mg/dL (<100); LIPASE 369 U/L (73-393); TOTAL BILIRUBIN 0.3 mg/dL (0.0-1.0); TRIGLYCERIDES 58 mg/dL (30-150)
[2019-09-03 23:54] LABS: ALCOHOL, BLOOD < 3 mg/dL (<10)
[2019-09-04 00:04] LABS: ACETAMINOPHEN < 1 ug/mL (1-30)
[2019-09-04] MEDS ORDERED: IPRATROPIUM BROM 0.5 MG/2.5 ML VIAL.NEB (ATROVENT) INH PRN (00:30)
[2019-09-04] MEDS ORDERED: MAG-AL HYDROX/SIMETH 30 ML UDC PO PRN (00:30)
[2019-09-04] MEDS ORDERED: ALBUTEROL SULFATE 0.083% 2.5 MG/3 ML VIAL.NEB INH PRN (00:30)
[2019-09-04] MEDS ORDERED: ACETAMINOPHEN 325 MG TABLET PO PRN (00:30)
[2019-09-04] MEDS ORDERED: MILK OF MAGNESIA 30 ML UDC PO PRN (00:30)
[2019-09-04] MEDS ORDERED: cloNIDine HCL 0.1 MG TABLET PO PRN (00:30)
[2019-09-04 00:31] LABS: BILIRUBIN,URINE NEGATIVE (NEGATIVE); BLOOD, URINE NEGATIVE (NEGATIVE); CLARITY/URINE CLEAR (CLEAR); COLOR,URINE YELLOW (YELLOW); GLUCOSE,URINE NEGATIVE (NEGATIVE); KETONES,URINE NEGATIVE (NEGATIVE); LEUKOCYTE ESTERASE ,URINE 2+ (NEGATIVE); NITRITE, URINE NEGATIVE (NEGATIVE); PH,URINE 8.5 (5.0-8.0); PROTEIN URINE NEGATIVE (NEGATIVE); UROBILINOGEN,URINE 0.2 (0.2-1.0)
[2019-09-04 00:45] LABS: BACTERIA,URINE MODERATE /HPF (None Seen); RBC,URINE 0-3 /HPF (0-3)
[2019-09-04] MEDS ORDERED: cefTRIAXone 1 GM IVPB PREMIX 50 ML IV ONE (00:45)
--- NOTE | 2019-09-04 01:00 | NUR ---
Note lety in ED - 09/04/19 at 0130 by [id number] Patient will be admitted to care of Dr. Jones. Admitted to Tele unit. Will go to room 133. Belongings list completed. Complete and up to date summary report printed. SBAR report to be given at bedside with opportunity for questions.
[2019-09-04 01:02] LABS: BARBITURATE, URINE NEGATIVE (NEG <=200); BENZODIAZEPINE, URINE NEGATIVE (NEG <=150); CANNABINOID, URINE NEGATIVE (NEG <=50); COCAINE, URINE NEGATIVE (NEG <=150); METHAMPHETAMINES SCREEN,URINE NEGATIVE (NEG <=500); OPIATE, URINE NEGATIVE (NEG <=100); PHENCYCLIDINE SCREEN,URINE NEGATIVE (NEG <=25); UR TRICYCLIC ANTIDEPRESSANTS NEGATIVE (NEG <=300); URINE AMPHETAMINE NEGATIVE (NEG <=500); URINE METHADONE NEGATIVE (NEG <=200); URINE OXYCODONE SCREEN NEGATIVE (NEG <=100); URINE PROPOXYPHENE SCREEN NEGATIVE (NEG <=300)
--- NOTE | 2019-09-04 01:46 | NUR ---
ADMIT NOTE Received pt from ER to the floor with a diagnosis of FAILURE TO THRIVE, POSSIBLE SEPSIS. Admission process initiated. patient oriented to pain management, safety and call light-teach back done.
--- NOTE | 2019-09-04 01:46 | NUR ---
Transfer to Telemetry via ACLS protocol. Licensed nurse present. IV present no signs or symptoms of infiltration.
--- NOTE | 2019-09-04 01:46 | NUR ---
Patient will be admitted to care of Dr. Jones. Admitted to Telemetry unit. Will go to room 134A. Belongings list completed. Complete and up to date summary report printed. SBAR report to be given at bedside with opportunity for questions.
[2019-09-04] MEDS: D5/0.45 NS 1,000 ML IV SCH ×2 (01:53→15:24)
[2019-09-04 02:19] VITALS: BP_SYST 131
--- NOTE | 2019-09-04 03:10 | NUR ---
Consultation Paged Reason for Consultation: Failure to Thrive Was consult called: Y Person who was notified: Loly Consulting Physician: Dr. Castle (Dr. Bangura is transmission line engineer) Boots And Shoes Supervisor Ordering Physician: Dr. Jones
--- NOTE | 2019-09-04 03:14 | NUR ---
Consultation Paged Reason for Consultation: Failure to Thrive Was consult called: Y Person who was notified: Loly Consulting Physician: Dr. Rodriguez Communication Professor Ordering Physician: Dr. Jones Face Sheet was faxed to [phone]
--- NOTE | 2019-09-04 03:47 | NUR ---
RN Rounds Patient is resting in bed, patient is confused, reoriented patient to person, place, time and event, no signs of acute distress, even and unlabored breathing on room air, IV fluids infusing well per MD order, Aguilar catheter draining to gravity, safety and fall precautions in place, bed locked and in lowest position, bed alarm on, three side rails up, aspiration precautions in place, call light with patient, will continue to monitor.
[2019-09-04 04:41] VITALS: BP_SYST 131
--- NOTE | 2019-09-04 04:55 | NUR ---
RN Rounds Patient is resting in bed, eyes closed, no signs of acute distress, even and unlabored breathing on room air, IV fluids infusing well, Aguilar catheter draining to gravity. Safety, fall, and aspiration precautions in place, bed locked and in lowest position, bed alarm on, three side rails up, call light with patient, will continue to monitor.
--- NOTE | 2019-09-04 06:54 | NUR ---
Closing Note Patient is resting in bed, eyes closed asleep, no signs of acute distress at this time, tolerating room air, IV fluids infusing well, Aguilar catheter draining to gravity. All safety precautions in place and maintained, bed locked and in lowest position, bed alarm on, three side rails up, call light with patient, will endorse care to dayshift RN.
--- NOTE | 2019-09-04 07:30 | NUR ---
opening note patient is resting in bed, responds to yes or no questions, educated communications project manager light system and plan of care, patient did not give me a verbal agreement, no signs of distress at this time, IV site dressing secured with IVF running and patient tolerating well, Dr Petty came earlier to see patient, no other needs addressed at this time, bed in lowest position, bed alarm on, three side rails up, call light within reach, fall/safety and aspiration precautions in place.
[2019-09-04 08:00] VITALS: BP_SYST 115
[2019-09-04] MEDS: DOCUSATE SODIUM 100 MG CAPSULE PO SCH ×2 (08:17→21:00)
[2019-09-04] MEDS: LISINOPRIL 10 MG TABLET (PRINIVIL) PO SCH (08:18)
[2019-09-04] MEDS: amLODIPine BESYLATE 10 MG TABLET PO SCH (08:18)
[2019-09-04] MEDS ORDERED: SERTRALINE HCL 50 MG TABLET PO SCH (09:00)
[2019-09-04] MEDS ORDERED: clonazePAM 0.5 MG TABLET PO SCH (09:00)
--- NOTE | 2019-09-04 09:04 | NUR ---
Nutrition Update Reinier Scale 12 noted. Pt admitted for FTT, possible sepsis. Diet: mechanical soft BMI: 21.6 kg/m2 RD to follow per nutrition care standards.
--- NOTE | 2019-09-04 12:04 | NUR ---
patient resting in bed eyes closed breathing easy and nonlabored, IVF running and patient tolerating well, no signs of distress at this time, no needs addressed at this time, fall/safety precautions in place. Dr Jones saw patient, orders received to change to pureed diet, called kitchen to bring pureed diet tray instead.
[2019-09-04 12:10] VITALS: BP_SYST 105
--- NOTE | 2019-09-04 13:12 | NUR ---
SS NOTES: QUALITY NURSE received a call from Ghada CANALES ragarding pt needing PEG Placement but pt is under represented. QUALITY NURSE phoned [facility] and spoke with ISSA Parham, who stated that the facility is the surrogate decision maker for the patient but only for [facility] related services. Dione is to fax over paperwork from their Interdisciplinary Team meeting that Dr. Jones was involved in. Addendum: 09/04/19 at 1443 by Carolyn GERARDO QUALITY NURSE received the recommendation from [facility] Interdisciplinary Team meeting. Paperwork given to Ghada to be attached to pt's chart.
--- NOTE | 2019-09-04 14:17 | NUR ---
patient resting in bed eyes closed breathing easy and nonlabored, IVF running and patient tolerating well, no signs of distress at this time, no needs addressed at this time, fall/safety precautions in place. unable to feed patient due to drowsiness.
--- NOTE | 2019-09-04 15:06 | NUR ---
Case mgt: Per sw-pt resides at [facility]--no family available--[facility] makes decisions on behalf of pt for issues related to the snf--s/w Ayn is following up --pt needs PEG but no family or conservator/guardian to sign consent---pt is under represented--TOMÁS CANALES
--- NOTE | 2019-09-04 16:30 | NUR ---
patient resting in bed eyes closed breathing easy and nonlabored, IVF running and patient tolerating well, no signs of distress at this time, no needs addressed at this time, fall/safety precautions in place. patient repositioned
[2019-09-04 16:39] VITALS: BP_SYST 132
--- NOTE | 2019-09-04 18:40 | NUR ---
closing note patient is resting in bed, responds to yes or no questions, kami signs of distress at this time, IV site dressing secured with IVF running and patient tolerating well, bed in lowest position, bed alarm on, three side rails up, call light within reach, fall/safety and aspiration precautions in place, patient takes medications crushed with applesauce, will endorse report to conventional machinist nurse to continue with care, still arranging with school social worker, [facility], and Dr Jones to receive consent for peg placement, patient does not have a family operations support representative to give consent for, next wound care to be done by conventional machinist.
--- NOTE | 2019-09-04 19:30 | NUR ---
Pt is awake and confused. No acute distress noted. IVF of D5 1/2NS is infusing well in LFA at 70ml/hr without any signs of infiltration. Aguilar cath to gravity drainage noted with clear yellowish urine. Fall and safety precautions are in place.
[2019-09-04 20:00] VITALS: BP_SYST 131
[2019-09-04] MEDS: QUEtiapine FUMARATE 25 MG TABLET PO SCH (20:59)
[2019-09-04] MEDS: MEMANTINE HCL 5 MG TABLET PO SCH (21:00)
[2019-09-04] MEDS ORDERED: QUEtiapine FUMARATE 25 MG TABLET PO SCH (21:00)
[2019-09-04] MEDS ORDERED: MEMANTINE HCL 5 MG TABLET PO SCH (21:00)
--- NOTE | 2019-09-04 21:00 | NUR ---
HS medications given. Pt remains confused and disoriented. Fall and safety precautions are in place.
--- NOTE | 2019-09-04 23:00 | NUR ---
Pt is sleeping without any distress noted. IVF is infusing well in LFA. Fall and safety precautions are in place.
--- NOTE | 2019-09-05 01:00 | NUR ---
Pt is sleeping comfortably in bed. bus driver/monitor is showing SR. IVF is infusing well in LFA. Fall and safety precautions are in place.
[2019-09-05 01:41] VITALS: BP_SYST 128
--- NOTE | 2019-09-05 03:00 | NUR ---
Pt is sleeping quietly in bed. food stylist is showing SR with HR in the 80's. IVF is infusing well in LFA. Fall and safety precautions are in place.
--- NOTE | 2019-09-05 05:00 | NUR ---
Sleeping comfortably. IVF is infusing well. Fall and safety precautions are in place.
[2019-09-05] MEDS: D5/0.45 NS 1,000 ML IV SCH ×2 (06:24→22:50)
--- NOTE | 2019-09-05 06:58 | NUR ---
Pt is awake and resting comfortably in bed. All pt's needs were attended to. IVF is infusing well in LFA. Fall and safety precautions are in place. Will endorse to day shift nurse.
[2019-09-05 07:26] LABS: BASOPHILS % (AUTO) 0.2 % (0.0-2.0); EOSINOPHILS # (AUTO) 0.5 K/uL (0.0-0.4); HEMATOCRIT 27.5 % (36-48); HEMOGLOBIN 9.1 g/dL (12.0-16.0); LYMPHOCYTES # (AUTO) 1.8 K/uL (1.0-5.5); LYMPHOCYTES % (AUTO) 16.3 % (20.5-51.5); MEAN CORPUSCULAR HEMOGLOBIN 32 pg (27-31); MEAN CORPUSCULAR HGB CONC 33 % (32-36); MEAN CORPUSCULAR VOLUME 95 fL (79.0-98.0); MONOCYTES # (AUTO) 0.7 K/uL (0.0-1.0); MONOCYTES % (AUTO) 6.5 % (1.7-9.3); NEUTROPHILS # (AUTO) 8.3 K/uL (1.8-7.7); PLATELET COUNT (AUTO) 197 K/uL (130-430); RED BLOOD CELL COUNT(AUTO) 2.88 MIL/uL (4.2-6.2); WHITE BLOOD COUNT (AUTO) 11.3 K/uL (4.8-10.8)
[2019-09-05 07:39] LABS: ALANINE AMINOTRANSFERASE 31 U/L (12-78); ALBUMIN 2.1 g/dL (3.4-4.8); ANION GAP 10 (5-15); ASPARTATE AMINOTRANSFERASE 19 U/L (10-37); CALCIUM 8.5 mg/dL (8.4-11.0); CHLORIDE 105 mmol/L (98-107); CREATININE 0.59 mg/dL (0.55-1.30); GLUCOSE 106 mg/dL (70-99); SODIUM SERUM 136 mmol/L (136-145); TOTAL BILIRUBIN 0.2 mg/dL (0.0-1.0); UREA NITROGEN, BLOOD 9 mg/dL (8-21)
[2019-09-05 07:48] LABS: POTASSIUM 2.9 mmol/L (3.5-5.1)
[2019-09-05 08:00] VITALS: BP_SYST 125
--- NOTE | 2019-09-05 08:00 | NUR ---
initial notes rec patient asleep but arousable to stimuli. ivf infusing well on the l arm. no infiltration noted. resp easy and unlabored. no sob noted. bed to the lowest position and side rails up and locked. call light within reached.
[2019-09-05] MEDS ORDERED: SERTRALINE HCL 50 MG TABLET PO SCH (09:00)
[2019-09-05] MEDS ORDERED: POTASSIUM CHLORIDE 40 MEQ in NS 250 ML IV ONE (09:45)
--- NOTE | 2019-09-05 10:03 | NUR ---
rounds dr song was paged to verify order. no sob noted.
[2019-09-05] MEDS: DOCUSATE SODIUM 100 MG CAPSULE PO SCH ×2 (10:27→22:18)
[2019-09-05] MEDS: LISINOPRIL 10 MG TABLET (PRINIVIL) PO SCH (10:28)
[2019-09-05] MEDS: amLODIPine BESYLATE 10 MG TABLET PO SCH (10:29)
--- NOTE | 2019-09-05 11:00 | NUR ---
rounds dr karen mathews cand dr kay came to see patient. still waiting for dr red to call back re feeding status. no sob noted.
--- NOTE | 2019-09-05 12:06 | NUR ---
CONSULTATION PAGED/CALLED Reason for Consultation: [] ARRYTHMIA Person Who was Notified: [] DR GIAN CASPER Consulting Physician: [] DR BRIAN CASPER Pin Attacher Specialty: [] CARDIO Ordering Physician: [] DR HOWELL O
--- NOTE | 2019-09-05 12:13 | NUR ---
WOUND EVALUATION: Late note for 09/05/2019 at 1213 secondary to patient care. Wound Consult received from Dr. Jones. Thank you Dr. Jones for the consult. Patient received in a [place] Bed with an Isoflex NESTOR mattress with low air-loss therapy initiated, awake, alert, confused, has bilateral lower extremity flexion contractures. Patient is unable to turn in bed independently. Reinier Score is a 13. Past Medical History: Hypertension, Dementia, Diabetes Mellitus, chronic renal failure, psychological disorder. Recent Labs: WBC 11.3, RBC 2.88, hemoglobin 9.1, hematocrit 27.5, potassium 2.9, glucose 106, albumin 2.1, alkaline phosphatase 38. Microbiology: Blood culture results 2 in progress. Urine culture results in progress. MRSA screen results negative. Intrinsic factors that delay wound healing: Diabetes Mellitus, chronic renal failure, Hypoalbuminemia. Extrinsic factors that delay wound healing: Immobility. Wound Assessment: 1. Left Lateral Hip: Unstageable pressure ulcer, present on admission. Wound bed has 80% brown slough, 15% yellow slough, 5% black slough. Mild odor, scant yellow purulent drainage. Abraham-wound intact. Surrounding tissue has large area of blanchable red erythema. 3 small areas of brown slough present superior to (and separate from) the wound from 11 to 12 oclock, included in measurement. Wound measures 6.1 cm x 5.1 cm. Recommend: Cleanse wound with normal saline. Apply sure prep to abraham-wound. Apply Venelex ointment to wound bed. Cover with foam dressing. Perform wound care daily, and as needed for dressing soiling or dislodgment. 2. Left Lateral Malleolus: Chronic unstageable pressure ulcer, present on admission. Wound bed has 50% dark red eschar, 45% yellow eschar, 5% brown eschar. No odor, no drainage. Abraham-wound intact. Site measures 1.2 cm x 1.5 cm. 3. Left Lateral 5th Metatarsal Head: Chronic unstageable pressure ulcer, present on admission. Wound bed has 70% purple hard tissue, 30% light pink hard tissue (appears to be a former DTI site that did not open). No odor, no drainage. Abraham-wound intact. Site measures 2.3 cm x 3.6 cm. 4. Left Lateral Mid Foot: Chronic unstageable pressure ulcer, present on admission. Wound bed has 90% dark purple hard tissue, 10% yellow hard tissue (appears to be a former DTI site that did not open). No odor, no drainage. Abraham-wound intact. Site measures 1.2 cm x 1.5 cm. Recommend: [place] sites with Betadine. Allow to air dry. Cover sites with foam dressings. Change dressings, assess sites and apply Betadine daily. Offload areas at all times with pillows. 5. Right medial first metatarsal head: Chronic unstageable pressure ulcer, present on admission. Wound bed has 90% yellow eschar, 10% brown eschar. No odor, no drainage. Abraham-wound intact. Site measures 0.8 cm x 1.9 cm. 6. Right Lateral Mid Foot: Chronic unstageable pressure ulcer, present on admission. Wound bed has 100% yellow eschar. No odor, no drainage. Abraham-wound intact. Site measures 1.0 cm x 1.3 cm. 7. Right Lateral 5th Metatarsal Head: Chronic unstageable pressure ulcer, present on admission. Wound bed has 90% yellow eschar, 10% yellow eschar. No odor, no drainage. Abraham-wound intact. Site measures 1.6 cm x 2.0 cm. Recommend: Delavan sites with Betadine. Allow to air dry. Cover sites with foam dressings. Change dressings, assess sites and apply Betadine daily. Offload areas at all times with pillows. 8. Left Heel: Blanchable red erythema, present on admission. 9. Right Heel: Blanchable red erythema, present on admission. Recommend: Elevate, offload and float bilateral feet and heels with pillows lengthwise under each extremity at all times. Do not allow any portion of heels, ankles or feet to touch bed or other surfaces at any time. Also recommend: Reposition patient Supine and to the right every two hours with pillow support (place pillows lengthwise under each extremity, place one pillow in between knees and ankles, place one pillow horizontally underneath distal calves to float heels). Off-load pressure areas with pillows for pressure re-distribution. Offload, elevate and float bilateral heels with pillows. Perform skin care and monitor skin integrity Q shift. Use moisture barrier cream on buttocks and other moisture susceptible areas QID and as needed for soiling. Maintain patient on low air-loss therapy.
--- NOTE | 2019-09-05 12:30 | NUR ---
rounds pt was feed for lunch and fuentes well. no osb noted.
[2019-09-05 13:29] VITALS: BP_SYST 137
[2019-09-05 16:18] VITALS: BP_SYST 116
--- NOTE | 2019-09-05 19:25 | NUR ---
Opening Note Received patient resting in bed w/ eyes closed. No s/sx of distress. IV site to LFA. Patient is on LOL mattress, she has sy catheter with drainage bag to gravity. Side rails up 3x, bed is locked in lowest position and bed alarm is on. Call light w/in reach.
[2019-09-05 20:00] VITALS: BP_SYST 105
[2019-09-05] MEDS: MEMANTINE HCL 5 MG TABLET PO SCH (22:18)
[2019-09-05] MEDS: QUEtiapine FUMARATE 25 MG TABLET PO SCH (22:19)
--- NOTE | 2019-09-05 22:20 | NUR ---
IV start IV to LFA became infiltrated, no longer patent. It was removed, catheter tip visualized intact and no active bleeding. A new IV # 20 gauge angiocath placed to left hand . Use of asceptic technique and opsite placed over site. Blood return noted and flushed with 10 cc of normal saline. No evidence of infiltration noted and patient tolerated. Resumed IVF and antibiotic infusion.
[2019-09-05] MEDS: BALSAM PERU/CASTOR OIL 60 GM OINT...G. TP SCH (22:51)
[2019-09-06 00:20] VITALS: BP_SYST 111
--- NOTE | 2019-09-06 02:20 | NUR ---
RN rounds Patient was repositioned and turned, IVF infusing well.
--- NOTE | 2019-09-06 04:15 | NUR ---
RN rounds Patient resting w/ eyes closed, easily aroused. IVF infusing well. Nonlabored breathing, repositioned for comfort.
[2019-09-06 07:26] LABS: BASOPHILS % (AUTO) 0.2 % (0.0-2.0); EOSINOPHILS # (AUTO) 0.6 K/uL (0.0-0.4); EOSINOPHILS % (AUTO) 5.4 % (0.0-4.0); HEMATOCRIT 25.7 % (36-48); HEMOGLOBIN 8.4 g/dL (12.0-16.0); LYMPHOCYTES # (AUTO) 2.5 K/uL (1.0-5.5); MEAN CORPUSCULAR HEMOGLOBIN 31 pg (27-31); MEAN CORPUSCULAR HGB CONC 33 % (32-36); MEAN CORPUSCULAR VOLUME 96 fL (79.0-98.0); MONOCYTES # (AUTO) 0.8 K/uL (0.0-1.0); MONOCYTES % (AUTO) 7.2 % (1.7-9.3); NEUTROPHILS # (AUTO) 7.4 K/uL (1.8-7.7); NEUTROPHILS % (AUTO) 65.2 % (40.0-70.0); PLATELET COUNT (AUTO) 201 K/uL (130-430); RED BLOOD CELL COUNT(AUTO) 2.68 MIL/uL (4.2-6.2); RED CELL DISTRIBUTION WIDTH 14.8 % (9.0-15.0); WHITE BLOOD COUNT (AUTO) 11.4 K/uL (4.8-10.8)
[2019-09-06 07:39] LABS: ALANINE AMINOTRANSFERASE 30 U/L (12-78); ALBUMIN 2.1 g/dL (3.4-4.8); ANION GAP 7 (5-15); ASPARTATE AMINOTRANSFERASE 17 U/L (10-37); CALCIUM 8.7 mg/dL (8.4-11.0); CHLORIDE 106 mmol/L (98-107); CREATININE 0.66 mg/dL (0.55-1.30); GLUCOSE 92 mg/dL (70-99); POTASSIUM 3.9 mmol/L (3.5-5.1); SODIUM SERUM 136 mmol/L (136-145); TOTAL BILIRUBIN 0.2 mg/dL (0.0-1.0); UREA NITROGEN, BLOOD 17 mg/dL (8-21)
--- NOTE | 2019-09-06 08:00 | NUR ---
initial notes rec patient asleep but arousable to stimuli. pt is confused. dr red came and relayed that dr karen mathews and dr triny kay signed the consent for peg yesterday. pt was kept npo since midnight. labs were checked by him and stated will take patient for peg placement. iv restared by anil gustafson on the l ac. no infiltration noted .
[2019-09-06 08:21] VITALS: BP_SYST 132
[2019-09-06] MEDS ORDERED: MIDAZOLAM HCL 5 MG/5 ML VIAL ONE (08:33)
[2019-09-06] MEDS ORDERED: fentaNYL CITRATE/PF 100 MCG/2 ML AMP ONE (08:34)
[2019-09-06] MEDS ORDERED: SIMETHICONE 40 MG/0.6 ML ML ONE (08:34)
--- NOTE | 2019-09-06 09:20 | NUR ---
rounds pt back from gi lab for peg placement. no bleeding noted. no sob noted.
[2019-09-06] MEDS: D5/0.45 NS 1,000 ML IV SCH ×2 (10:12→22:26)
--- NOTE | 2019-09-06 11:06 | NUR ---
Verified Jevity 1.5 to community health representative
[2019-09-06] MEDS ORDERED: MAG-AL HYDROX/SIMETH 30 ML UDC GT PRN (12:15)
[2019-09-06] MEDS ORDERED: MILK OF MAGNESIA 30 ML UDC GT PRN (12:15)
[2019-09-06] MEDS ORDERED: cloNIDine HCL 0.1 MG TABLET GT PRN (12:15)
--- NOTE | 2019-09-06 12:15 | NUR ---
rounds seen by dr kay and updated patient that peg was inserted. no sob noted.
[2019-09-06 12:54] VITALS: BP_SYST 128
--- NOTE | 2019-09-06 14:00 | NUR ---
rounds sleeps at intervals. turned and repositioned for comfort. no sob noted.
[2019-09-06 16:52] VITALS: BP_SYST 121
--- NOTE | 2019-09-06 17:04 | NUR ---
Dietitian Recommendations * Recommend continuing pureed diet & Jevity 1.5 at 60 ml/hr (goal rate), Free Water Flush: 200 via GT (ONS Ensure Enlive TID comes standard w/ pureed diet; provides 1050 kcal/day and 60 gm protein/day) TF Provides: 2160 kcal/day, 92 gm protein/day, and 1294 ml free water/day TF Meets: 126% of upper end of estimated caloric needs and 94% of upper end of estimated protein needs LP, RD Please refer to Nutrition Assessment for details. Addendum: 09/06/19 at [address] Amended: Links added.
[2019-09-06] MEDS: BALSAM PERU/CASTOR OIL 60 GM OINT...G. TP SCH (17:11)
--- NOTE | 2019-09-06 19:30 | NUR ---
Opening Note Received patient resting in bed w/ eyes closed. No s/sx of distress. IV site to LAC. Patient is on LOL mattress. G-tube feed is running at 30ml/hr; patient is tolerating, there is no residual. It was increased to 40ml/hr as ordered. She has sy catheter with drainage bag to gravity. Side rails up 3x, bed is locked in lowest position and bed alarm is on. Call light w/in reach.
[2019-09-06 20:00] VITALS: BP_SYST 119
--- NOTE | 2019-09-06 20:15 | NUR ---
CRITICAL LAB Received critical lab result from Mckenzie Baker: Urine culture is positive for proteus mirabilis, ESBL & MDRO. Called Dr. Jones, waiting for call back
--- NOTE | 2019-09-06 20:30 | NUR ---
G-tube feeding G-tube feeding follow up on goal rate. Patient is tolerating and has no residual, rate increased 50ml/hr. Will continue to monitor.
--- NOTE | 2019-09-06 20:44 | NUR ---
NO answer -Dr. Jones There is no answer upon calling Dr. Jones's phone [phone], no exchange, no voicemail; the phone just rings. Charge nurse aware. [facility] does not have another contact number.
[2019-09-06] MEDS ORDERED: QUEtiapine FUMARATE 25 MG TABLET GT SCH (21:00)
--- NOTE | 2019-09-06 21:02 | NUR ---
s/w Dr. Jones Informed Dr. Jones of (+) urine culture result, he asked for sensitivity and I provided information. He said he will enter orders.
[2019-09-06] MEDS: DOCUSATE SODIUM 100 MG/10 ML UDC GT SCH (21:59)
[2019-09-06] MEDS: MEMANTINE HCL 5 MG TABLET GT SCH (21:59)
--- NOTE | 2019-09-06 21:59 | NUR ---
Medications / Feeding tube Due medications given via G-tube as ordered. Patient is tolerating G-tube, no residual and presently increased to goal of 60 ml/hr.
[2019-09-06] MEDS ORDERED: MEROPENEM 500 MG VIAL IV ONE (22:18)
[2019-09-06] MEDS: MEROPENEM 500 MG in NS 50 ML IV SCH ×2 (22:26→22:30)
[2019-09-06] MEDS: ACETAMINOPHEN 650 MG/20.3 ML UDC GT PRN (23:05)
--- NOTE | 2019-09-06 23:06 | NUR ---
Tylenol Patient is moaning and when asked if she has pain she replied yes. Administered Tylenol for mild pain as ordered via G-tube.
--- NOTE | 2019-09-07 00:10 | NUR ---
Resting Patient is resting w/ eyes closed, she is calm and no longer moaning or grimacing.
[2019-09-07 01:26] VITALS: BP_SYST 139
--- NOTE | 2019-09-07 02:30 | NUR ---
RN rounds Patient repositioned and turned
[2019-09-07] MEDS: ACETAMINOPHEN 650 MG/20.3 ML UDC GT PRN (04:41)
--- NOTE | 2019-09-07 04:41 | NUR ---
Tylenol / G-tube residual Patient repositioned and will receive wound care, moaning. Administered Tylenol GT tube as ordered. Presently residual is at 130 ml, and resumed feeding per Dr. Petty's order (hold if residual 150 ml) will continue to monitor.
--- NOTE | 2019-09-07 04:45 | NUR ---
Wound Dressing change Dressing change to left lower back done; wound care & dressing to bilat wounds on feet done (document on MST assessment updated).
[2019-09-07] MEDS: MEROPENEM 500 MG in NS 50 ML IV SCH ×3 (06:22→21:59)
--- NOTE | 2019-09-07 06:22 | NUR ---
Tube feeding - residual Residual of 170 ml was noted and returned, feeding is held as ordered.
--- NOTE | 2019-09-07 06:44 | NUR ---
Closing Note Patient is resting in comfortable position. Presently antibiotic is infusing and feeding is held. IVF infusing well. Patient is not is distress. Needs met throughout shift. Safety, aspiration, and contact precautions maintained. Will endorse care to incoming nurse.
[2019-09-07 06:53] LABS: BASOPHILS % (AUTO) 0.2 % (0.0-2.0); EOSINOPHILS # (AUTO) 0.3 K/uL (0.0-0.4); EOSINOPHILS % (AUTO) 1.5 % (0.0-4.0); HEMATOCRIT 31.2 % (36-48); HEMOGLOBIN 10.2 g/dL (12.0-16.0); LYMPHOCYTES # (AUTO) 1.7 K/uL (1.0-5.5); LYMPHOCYTES % (AUTO) 8.4 % (20.5-51.5); MEAN CORPUSCULAR HEMOGLOBIN 31 pg (27-31); MEAN CORPUSCULAR HGB CONC 33 % (32-36); MEAN CORPUSCULAR VOLUME 95 fL (79.0-98.0); NEUTROPHILS # (AUTO) 17.5 K/uL (1.8-7.7); NEUTROPHILS % (AUTO) 84.9 % (40.0-70.0); PLATELET COUNT (AUTO) 291 K/uL (130-430); RED BLOOD CELL COUNT(AUTO) 3.28 MIL/uL (4.2-6.2); RED CELL DISTRIBUTION WIDTH 15.4 % (9.0-15.0); WHITE BLOOD COUNT (AUTO) 20.7 K/uL (4.8-10.8)
--- NOTE | 2019-09-07 07:28 | NUR ---
Dr. Jovanny Petty is making rounds on patient and was updated on patient's feeding tolerance. He provided new orders, hold feeding 6 hours and start feeding at 40 ml/hr w/ goal of 50 ml/hr. Free water flush 25 ml Q8h
--- NOTE | 2019-09-07 08:00 | NUR ---
ASSUMPTION OF CARE: RECEIVED PT ASLEEP, EASILY AROUSED VIA LIGHT TACTILE STIMULI, DX: RISK FOR INJURY, R/T SEPSIS, FAILURE TO THRIVE, NO DISTRESS NOTED AT THIS TIME, BREATH SOUNDS ARE CLEAR, BREATHING UNLABORED, AFEBRILE, NO INDICATION OF PAIN, SR-ST OM TELEMONITOR WITH HR LOW 100'S, 110 BPM, IV SITE INTACT, PATENT, NO REDNESS OR SWELLING, BILATERAL LOWER EXTREMITIES CONTRACTED, RESTING ON AIR-MATTRESS, REORIETED TO CALL LIGHT, PLACED WITHIN REACH, WILL CONT' TO MONITOR AND ASSESS.
--- NOTE | 2019-09-07 09:00 | NUR ---
ELECTRO MECHANICAL TECHNOLOGIST: MORNING MEDS GIVEN, PER ORDERED BY Monisha, TOLERATED WELL, CLEANED, REPOSITIONED FOR COMFORT, CALL LIGHT PLACED WITHIN REACH, WILL CONT' TO MONITOR AND ASSESS.
[2019-09-07] MEDS: DOCUSATE SODIUM 100 MG/10 ML UDC GT SCH ×2 (10:05→21:59)
[2019-09-07] MEDS: SERTRALINE HCL 50 MG TABLET GT SCH (10:06)
[2019-09-07] MEDS: amLODIPine BESYLATE 10 MG TABLET GT SCH (10:08)
[2019-09-07] MEDS: LISINOPRIL 10 MG TABLET (PRINIVIL) GT SCH (10:10)
[2019-09-07] MEDS: BALSAM PERU/CASTOR OIL 60 GM OINT...G. TP SCH (10:11)
--- NOTE | 2019-09-07 12:00 | NUR ---
NURSES NOTES: PT REMAINS STABLE, RESIDUAL CHECKED=<80, FEEDING DECREASED TO 40CC/HR PER ORDERED BY Monisha, 25CC H2O FLUSH GIVEN, PT REPOSITIONED FOR COMFORT, CALL LIGHT PLACED WITHIN REACH, WILL CONT' TO MONITOR AND ASSESS.
[2019-09-07 12:52] VITALS: BP_SYST 151
[2019-09-07 13:00] VITALS: BP_SYST 151
--- NOTE | 2019-09-07 16:00 | NUR ---
NURSES NOTES: PT HAS NO CHANGES IN CONDITION NOTED, TOLERATING FEEDING, <50 CC RESIDUAL NOTED, NEEDS MET, IS CLEAN, DRY AND IN POSITION OF COMFORT, FREQUENT ROUNDING, CALL LIGHT WITHIN REACH, WILL CONT' WITH PLAN OF CARE.
[2019-09-07 16:14] VITALS: BP_SYST 111
--- NOTE | 2019-09-07 18:00 | NUR ---
END OF SHIFT: PT ASLEEP, NO CHANGES NOTED, WILL ENDORSE TO COST RECOVERY TECHNICIAN NURSE.
--- NOTE | 2019-09-07 19:35 | NUR ---
rounds patient resting comfortably in bed, not in distress, vitals stable. dennies any pain and discomfort at this time. assessment done and dcouemnted. see flowsheet. needs attended to. safety and fall measures in placed. will continue to monitor.
--- NOTE | 2019-09-07 21:15 | NUR ---
medication due medications given as scheduled, tolerated well. will continue to monitor.
[2019-09-07] MEDS: MEMANTINE HCL 5 MG TABLET GT SCH (21:59)
[2019-09-07] MEDS: D5/0.45 NS 1,000 ML IV SCH (21:59)
--- NOTE | 2019-09-08 00:13 | NUR ---
rounds patient asleep, respirations even and unlabored, will continue to monitor.
[2019-09-08 00:20] VITALS: BP_SYST 122
--- NOTE | 2019-09-08 00:34 | NUR ---
PATIENT RESTING: Patient resting quietly. No acute distress noted. Vital signs within normal range.
--- NOTE | 2019-09-08 02:14 | NUR ---
rounds patient asleep, no SOB noted nor pain and discomfort, will continue to monitor.
--- NOTE | 2019-09-08 04:12 | NUR ---
PATIENT RESTING: Patient resting quietly. No acute distress noted. Vital signs within normal range.
[2019-09-08] MEDS: MEROPENEM 500 MG in NS 50 ML IV SCH ×3 (05:14→21:46)
--- NOTE | 2019-09-08 07:30 | NUR ---
OPENING NOTE Patient resting in the bed. No acute distress. Skin warm and dry to touch. IV intact to LFA, no redness, no swelling, patient. On D5 1/2NS at 50ml/hr, infusing well. GT intact, on Gt feeding of Jevity 1.5. On contact isolation. F/C intact, drain gravity. Safety measure maintained. Call light within reached. Bed locked in low position, side rail sup, bed alarm on. Will continue to monitor.
[2019-09-08 08:00] VITALS: BP_SYST 117
--- NOTE | 2019-09-08 08:00 | NUR ---
SEEN AND EXAMINED BY PRACHI MCKINLEY.
[2019-09-08 08:31] LABS: HEMATOCRIT 26.2 % (36-48); HEMOGLOBIN 8.6 g/dL (12.0-16.0); MEAN CORPUSCULAR HEMOGLOBIN 31 pg (27-31); MEAN CORPUSCULAR HGB CONC 33 % (32-36); MEAN CORPUSCULAR VOLUME 95 fL (79.0-98.0); PLATELET COUNT (AUTO) 240 K/uL (130-430); RED BLOOD CELL COUNT(AUTO) 2.78 MIL/uL (4.2-6.2); RED CELL DISTRIBUTION WIDTH 15.4 % (9.0-15.0); WHITE BLOOD COUNT (AUTO) 23.4 K/uL (4.8-10.8)
[2019-09-08 08:53] LABS: ALANINE AMINOTRANSFERASE 27 U/L (12-78); ALBUMIN 1.9 g/dL (3.4-4.8); ANION GAP 7 (5-15); ASPARTATE AMINOTRANSFERASE 13 U/L (10-37); CALCIUM 9.1 mg/dL (8.4-11.0); CHLORIDE 103 mmol/L (98-107); CREATININE 0.59 mg/dL (0.55-1.30); GLUCOSE 136 mg/dL (70-99); POTASSIUM 3.2 mmol/L (3.5-5.1); SODIUM SERUM 134 mmol/L (136-145); TOTAL BILIRUBIN 0.3 mg/dL (0.0-1.0); UREA NITROGEN, BLOOD 17 mg/dL (8-21)
[2019-09-08 09:19] LABS: ATYPICAL LYMPHOCYTES % 0 % (0-0); BAND % (MANUAL) 0 % (0-6); BASOPHILS % (MANUAL) 0 % (0-2); EOSINOPHILS % (MANUAL) 0 % (0-7); LYMPHOCYTES % (MANUAL) 9 % (20-46); MONOCYTES % (MANUAL) 2 % (0-11)
[2019-09-08] MEDS: DOCUSATE SODIUM 100 MG/10 ML UDC GT SCH ×2 (09:28→20:16)
[2019-09-08] MEDS: LISINOPRIL 10 MG TABLET (PRINIVIL) GT SCH (09:29)
[2019-09-08] MEDS: amLODIPine BESYLATE 10 MG TABLET GT SCH (09:29)
[2019-09-08] MEDS: SERTRALINE HCL 50 MG TABLET GT SCH (09:29)
--- NOTE | 2019-09-08 09:29 | NUR ---
AM SCHEDULE MED GIVEN, TOLERATED WELL.
[2019-09-08] MEDS: BALSAM PERU/CASTOR OIL 60 GM OINT...G. TP SCH (09:30)
--- NOTE | 2019-09-08 11:27 | NUR ---
Pageyaneth Jones regarding lab results. Addendum: 09/08/19 at 1129 by Nurys Felix RN called back and said he will enter the order.
--- NOTE | 2019-09-08 11:30 | NUR ---
ADJUSTED THE RATE OF GT FEEDING Per charge nurse, patient had residual of the GT, Dr. Jones said that to keep the GT feeding at the rate of 40ml/hr.
--- NOTE | 2019-09-08 11:37 | NUR ---
Discharge Planning: DCP faxed pt referral to [facility] (f [phone] p [phone]) DCP spoke to Curtis in admissions making aware patient needs a isolation room. DCP to follow up. Addendum: 09/08/19 at 1358 by Gema Gallagher DP [facility] p [phone]) DCP spoke to Curtis in admissions patient accepted to [facility] Addendum: 09/08/19 at 1420 by Gema Gallagher DP Curtis from [facility] (f [phone] p [phone]) stated patient can come tomorrow in morning to [facility] tomorrow, the room will be empty.
[2019-09-08 12:00] VITALS: BP_SYST 112
--- NOTE | 2019-09-08 12:30 | NUR ---
FELICIA PEÑA REGARDING THE DISCHARGE Called and received the call back regarding the discharge order. Reported to Dr. Jones, the patient got accepted and with the room in [facility]. However, the facility needs to arrange the isolation room so may discharge tomorrow per case management assistant. Dr. Jones stated that not to discharge the patient, today with abnormal lab, elevated WBC and low potassium and he ordered the lab tomorrow.
[2019-09-08] MEDS ORDERED: POTASSIUM CHLORIDE 20 MEQ TAB.PRT.SR PO ONE (12:45)
[2019-09-08] MEDS ORDERED: POTASSIUM CHLORIDE 20 MEQ/PKT PACKET GT ONE (13:00)
--- NOTE | 2019-09-08 14:15 | NUR ---
ROUND Patient resting in the bed. No acute distress. GT intact, continue on GT feeding, tolerated well. IV intact, IVF infusing well. F/C intact, drain gravity. Safety measure maintained. Call light within reached. Bed locked in low position, side rails up, bed alarm on. Continue on contact isolation. Continue to monitor.
[2019-09-08 16:00] VITALS: BP_SYST 114
--- NOTE | 2019-09-08 16:30 | NUR ---
ROUND Patient resting in the bed. No acute distress. GT intact, continue on GT feeding, tolerated well. IV intact, IVF infusing well. F/C intact, drain gravity. Safety measure maintained. Bed locked in low position, side rails up, bed alarm on. Call light within reached. Continue on contact isolation. Continue to monitor.
[2019-09-08] MEDS: D5/0.45 NS 1,000 ML IV SCH (18:49)
--- NOTE | 2019-09-08 18:50 | NUR ---
CLOSING NOTE Patient resting in the bed. No acute distress. Skin warm and dry to touch. IV intact to LFA, no redness, no swelling, patient. On D5 1/2NS at 50ml/hr, infusing well. GT intact, on GT feeding of Jevity 1.5 at 40ml/hr, tolerated well.All needs met. On contact isolation. F/C intact, drain gravity. Safety measure maintained. Call light within reached. Bed locked in low position, side rail sup, bed alarm on. Will endorse to nursing nurse.
--- NOTE | 2019-09-08 19:45 | NUR ---
ROUNDS PATIENT RESTING IN BED, NOT IN DISTRESS, VITALS STABLE, NO SIGNS OF ANY PAIN NOTED. ASSESSMENT DONE AND DOCUEMNTED. SEE FLOWSHEET. NEEDS ATTENDED TO. SAFETY AND FALL MEASURES IN PLACED. WILL CONTINUE TO MONITOR.
[2019-09-08] MEDS: MEMANTINE HCL 5 MG TABLET GT SCH (20:16)
--- NOTE | 2019-09-08 21:20 | NUR ---
MEDICATION DUE MEDICATIONS GIVEN ORDERED, TOLERATED WELL. WILL CONTINUE TO MONITOR.
--- NOTE | 2019-09-09 00:13 | NUR ---
PATIENT RESTING: Patient resting quietly. No acute distress noted. Vital signs within normal range.
[2019-09-09 00:20] VITALS: BP_SYST 114
--- NOTE | 2019-09-09 02:13 | NUR ---
ROUNDS PATIENT ASLEEP, NOT IN DISTRESS, WILL CONTINUE TO MONITOR.
--- NOTE | 2019-09-09 04:13 | NUR ---
PATIENT RESTING: Patient resting quietly. No acute distress noted. Vital signs within normal range.
[2019-09-09] MEDS: MEROPENEM 500 MG in NS 50 ML IV SCH (05:55)
--- NOTE | 2019-09-09 06:50 | NUR ---
CLOSING NOTES PATIENT AWAKE, VITALS STABLE, NO SIGNS OF ANY PAIN AND DISCOMFORT NOTED. ALL NEEDS ATTENDED TO. SAFETY MEASURES MAINTAINED. WILL ENDORSE TO INCOMING SHIFT NURSE.
[2019-09-09 07:10] LABS: BASOPHILS % (AUTO) 0.3 % (0.0-2.0); EOSINOPHILS # (AUTO) 0.7 K/uL (0.0-0.4); EOSINOPHILS % (AUTO) 4.6 % (0.0-4.0); HEMATOCRIT 26.2 % (36-48); HEMOGLOBIN 8.7 g/dL (12.0-16.0); LYMPHOCYTES % (AUTO) 12.4 % (20.5-51.5); MEAN CORPUSCULAR HEMOGLOBIN 31 pg (27-31); MEAN CORPUSCULAR HGB CONC 33 % (32-36); MEAN CORPUSCULAR VOLUME 94 fL (79.0-98.0); MONOCYTES # (AUTO) 0.6 K/uL (0.0-1.0); MONOCYTES % (AUTO) 3.7 % (1.7-9.3); NEUTROPHILS # (AUTO) 12.5 K/uL (1.8-7.7); PLATELET COUNT (AUTO) 256 K/uL (130-430); RED BLOOD CELL COUNT(AUTO) 2.79 MIL/uL (4.2-6.2); RED CELL DISTRIBUTION WIDTH 15.8 % (9.0-15.0); WHITE BLOOD COUNT (AUTO) 15.8 K/uL (4.8-10.8)
[2019-09-09 07:27] LABS: ANION GAP 12 (5-15); CALCIUM 8.8 mg/dL (8.4-11.0); CHLORIDE 103 mmol/L (98-107); CREATININE 0.56 mg/dL (0.55-1.30); GLUCOSE 102 mg/dL (70-99); POTASSIUM 3.4 mmol/L (3.5-5.1); SODIUM SERUM 138 mmol/L (136-145); UREA NITROGEN, BLOOD 15 mg/dL (8-21)
--- NOTE | 2019-09-09 07:36 | NUR ---
Opening Note bedside SBAR report received from [employer] shift lead RN, patient resting in bed, respirations even and unlabored on room air, no pain noted using FLACC scale, no acute distress noted, contact isolation precautions in place, educated patient on use of call light and asked to call for assistance, patient verbalized understanding, call light in reach, bed in low and locked position, bed alarm on.
[2019-09-09 08:00] VITALS: BP_SYST 129
--- NOTE | 2019-09-09 09:40 | NUR ---
RN Rounds patient resting in bed, tolerating tube feeding well, 40ml residual from tube feeding, HOB elevated, no acute distress noted.
[2019-09-09] MEDS: DOCUSATE SODIUM 100 MG/10 ML UDC GT SCH (09:42)
[2019-09-09] MEDS: SERTRALINE HCL 50 MG TABLET GT SCH (09:42)
[2019-09-09] MEDS: LISINOPRIL 10 MG TABLET (PRINIVIL) GT SCH (09:43)
[2019-09-09] MEDS: amLODIPine BESYLATE 10 MG TABLET GT SCH (09:44)
[2019-09-09] MEDS: BALSAM PERU/CASTOR OIL 60 GM OINT...G. TP SCH (09:46)
--- NOTE | 2019-09-09 12:09 | NUR ---
Physician Rounds Dr. Jones at bedside examining patient, informed him of potassium 3.4, informed him that patients WBC 15.8 and HR 96 triggers sepsis protocol, physician to put in orders.
[2019-09-09] MEDS ORDERED: POTASSIUM CHLORIDE 20 MEQ TAB.PRT.SR PO ONE (12:15)
--- NOTE | 2019-09-09 12:30 | NUR ---
Wound Care educated patient on purpose and procedure for wound care, wound care completed, patient tolerated well, no pain noted during of after wound care, no acute distress noted, see MST shift assessment for wound care, tube feeding stopped, flushed, and clamped pending transfer to [facility].
--- NOTE | 2019-09-09 12:36 | NUR ---
Discharge Planning: DCP arrange transportation with [employer] ([phone]) there is aways a 4hr window time , [facility] 4:00pm P/U will transport Trip# [id number]. Zeina Wright ([phone]) 111C Addendum: 09/09/19 at 1242 by Gema Gallagher DP DCP made nurse aware patient packet taken to nurse station.
[2019-09-09] MEDS ORDERED: POTASSIUM CHLORIDE 20 MEQ/PKT PACKET GT ONE (12:45)
[2019-09-09 12:58] VITALS: BP_SYST 122
--- NOTE | 2019-09-09 13:00 | NUR ---
Nutrition F/U RD reviewed pt's current EMR including diet Hx, physician notes, nursing notes, pertinent labs/meds/procedures, care trends and care activity. Current Nutrition Support: Jevity 1.5 at 50ml/hr (goal rate), Free Water Flush 25ml Q8H via GT Subjective information: Pt seen in bed, EN infusing per MD orders. RN reported 40cc residual this morning and has been tolerating EN regimen well. RD noted BG 102(H) and per [employer] [facility] note ++pressure ulcer. Pt may benefit from addition of Bryan for skin integrity. Estimated Energy Expenditure (kcals/day) 5535-3962 kcal/day (30-35 kcal/kg CBW for sepsis, wt gain promotion) Estimated Protein Required (g/day) 74-98 gm/day (1.5-2 gm/kg CBW for sepsis, wt gain promotion) Estimated Fluid Required (l/day) 1.2-1.5 L/day (25-30 ml/kg CBW for geriatric maintenance) Problem/Etiology/Signs/Symptoms Increased nutritional needs related to metabolic demands as evidenced by estimated nutritional requirements for sepsis and wound healing. (*ongoing) Expected Outcomes/Goals - Monitor EN tolerance and intakes w/ goal of pt meeting at least 80-100% of estimated nutritional needs, labs trending WNL, normal GI function, and skin integrity/wt maintenance Dietitian Recommendations * Recommend Glucerna 1.5 at 45ml/hr (goal rate), Bryan BID, FWF 120ml Q6H via GT Provides: 1780 kcal, 94 gm protein and 1300ml free water daily. Meets: 104% of upper end of estimated calorie needs and 96% of upper end of estimated protein needs. Follow Up High Risk: F/U in 2-3days
--- NOTE | 2019-09-09 13:29 | NUR ---
Called Report called Zeina Wright , gave SBAR report to Lesley.
[2019-09-09] MEDS ORDERED: MERO500P IV (13:51)
[2019-09-09 13:59] VITALS: BP_SYST 122
--- NOTE | 2019-09-09 14:45 | NUR ---
RN Rounds patient resting in bed, respirations even and unlabored on room air, no acute distress noted, no pain noted using FLACC scale.
[2019-09-09 16:23] VITALS: BP_SYST 151
--- NOTE | 2019-09-09 16:45 | NUR ---
Discharge provided patient with discharge packet and instructions, IV catheter clean, dry, intact and patent, sy catheter draining to gravity, respirations even and unlabored on room air, no acute distress noted, no pain noted using FLACC scale, all belongings sent with patient, patient [facility] to [facility] ambulance.
[2019-09-09] MEDS ORDERED: MEROPENEM 500 MG in NS 50 ML IV SCH (21:00)
== END 2019-09-09 16:45 | DRG 689 ==
LOC: SED 22:50 → STU 09-04 00:27
PROVIDERS: ADMIT Internal Medicine; ATTEND Internal Medicine
PROC: 0DH63UZ Insertion of Feeding Device into Stomach, Percutaneous Approach (ICD-10-PCS; principal; 2019-09-06 08:45)
DX: N39.0 Urinary tract infection, site not specified (principal); E43 Unspecified severe protein-calorie malnutrition; E87.1 Hypo-osmolality and hyponatremia; R65.10 Systemic inflammatory response syndrome (SIRS) of non-infectious origin without acute organ dysfunction; B96.4 Proteus (mirabilis) (morganii) as the cause of diseases classified elsewhere; D64.9 Anemia, unspecified; E11.22 Type 2 diabetes mellitus with diabetic chronic kidney disease; F03.90 Unspecified dementia, unspecified severity, without behavioral disturbance, psychotic disturbance, mood disturbance, and anxiety; E87.6 Hypokalemia; F32.9 Major depressive disorder, single episode, unspecified; I12.9 Hypertensive chronic kidney disease with stage 1 through stage 4 chronic kidney disease, or unspecified chronic kidney disease; M81.0 Age-related osteoporosis without current pathological fracture; L98.499 Non-pressure chronic ulcer of skin of other sites with unspecified severity; N18.3 Chronic kidney disease, stage 3 (moderate); R13.10 Dysphagia, unspecified; R62.7 Adult failure to thrive; Z93.0 Tracheostomy status; Z88.5 Allergy status to narcotic agent; Z79.899 Other long term (current) drug therapy; Z68.21 Body mass index [BMI] 21.0-21.9, adult
CPT/HCPCS: 36415; 43246; 71045; 80048; 80053; 80061; 80307; 81000-TC; 82150-TC; 82550-TC; 83036; 83605; 83690-TC; 83735-TC; 83880; 84484; 85007; 85025; 85027; 85610-TC; 85730-TC; 86710; 87040-TC; 87081; 87086; 87186-TC; 93005; 96365; 99285; G0378; G0480; G0481; G0482; J0696; J2185; J2250; J3010; J3480; J7050